=== PATIENT | female | born 1965 | race Caucasian/White ===

== ENCOUNTER → 2017-08-29 | Outpatient (CLI) | payer BC ==
--- NOTE | 2017-08-30 11:54 | MM ---
Reason for exam: screening (asymptomatic). Last mammogram was performed 1 year and 8 months ago. History: Patient is postmenopausal. Family history of breast cancer in mother at age 50 and breast cancer in maternal aunt. Took hormonal contraceptives for 5 years. Physical Findings: A clinical breast exam by your physician is recommended on an annual basis and results should be correlated with mammographic findings. MG Screening Mammo w CAD Bilateral CC and MLO view(s) were taken. Prior study comparison: January 06, 2016, bilateral MG screening mammo w CAD. December 27, 2014, bilateral MG screening mammo w CAD. There are scattered fibroglandular densities. There is no discrete abnormality. No significant changes when compared with prior studies. ASSESSMENT: Negative, BI-RAD 1 RECOMMENDATION: Routine screening mammogram of both breasts in 1 year.
== END | disposition home or self-care (01) ==
LOC: RADMAMWWP 07:18
PROVIDERS: ATTEND Family Medicine
DX: Z12.31 Encounter for screening mammogram for malignant neoplasm of breast (principal)
CPT/HCPCS: 77067

== ENCOUNTER → 2018-10-30 | Outpatient (CLI) | payer BC ==
--- NOTE | 2018-10-31 10:57 | MM ---
Reason for exam: screening (asymptomatic). Last mammogram was performed 1 year and 2 months ago. History: Patient is postmenopausal. Family history of breast cancer in mother at age 50 and breast cancer in maternal aunt. Took hormonal contraceptives for 5 years. Physical Findings: A clinical breast exam by your physician is recommended on an annual basis and results should be correlated with mammographic findings. MG Screening Mammo w CAD Bilateral CC and MLO view(s) were taken. Prior study comparison: August 29, 2017, bilateral MG screening mammo w CAD. January 06, 2016, bilateral MG screening mammo w CAD. The breast tissue is heterogeneously dense. This may lower the sensitivity of mammography. There is no discrete abnormality. No significant changes when compared with prior studies. ASSESSMENT: Negative, BI-RAD 1 RECOMMENDATION: Routine screening mammogram of both breasts in 1 year.
== END ==
LOC: RADMAMWWP 10:18
PROVIDERS: ATTEND Family Medicine
DX: Z12.31 Encounter for screening mammogram for malignant neoplasm of breast (principal)
CPT/HCPCS: 77067

== ENCOUNTER → 2018-11-27 | Outpatient (CLI) | payer OTHER ==
--- NOTE | 2018-11-27 14:40 | XR ---
EXAMINATION TYPE: XR Hip Complete 2 views RT, XR knee complete 3 views RT DATE OF EXAM: 11/27/2018 COMPARISON: NONE HISTORY: 53-year-old female right hip and knee pain FINDINGS: Right hip: Mild degenerative spurring at the right hip. Overall hip joint space appears maintained. No acute fra cture, subluxation, or dislocation seen. Phlebolith in the right side of pelvis. Right knee: Meniscal chondrocalcinosis. Moderate degenerative spurring patellofemoral compartment and mild to mod erate in the medial compartment. Trace knee joint effusion. Extensor mechanism intact. No acute fract ure, subluxation, or dislocation. MPRESSION: 1. Right hip: Mild degenerative spurring. No acute osseous abnormality seen. 2. Right knee: Mild to moderate medial and patellofemoral compartmental osteoarthrosis. No acute osse ous abnormality seen. Meniscal chondrocalcinosis may be idiopathic or could reflect underlying CPPD.
== END | disposition home or self-care (01) ==
LOC: RADXRMAIN 09:48
PROVIDERS: ATTEND Emergency Medicine
DX: M25.551 Pain in right hip (principal); M76.891 Other specified enthesopathies of right lower limb, excluding foot; M17.11 Unilateral primary osteoarthritis, right knee; M11.261 Other chondrocalcinosis, right knee
CPT/HCPCS: 73502

== ENCOUNTER → 2018-12-28 | Outpatient (CLI) | payer BC ==
[2018-12-28 10:25] LABS: Basophils % (A) 1 %; Eosinophils # (A) 0.1 k/uL (0-0.7); Eosinophils % (A) 2 %; HCT 42.2 % (34.0-46.0); HGB 13.7 gm/dL (11.4-16.0); Lymphocytes # (A) 1.3 k/uL (1.0-4.8); Lymphocytes % (A) 22 %; MCH 28.5 pg (25.0-35.0); MCHC 32.4 g/dL (31.0-37.0); MCV 87.7 fL (80.0-100.0); Mean Platelet Volume 6.9; Monocytes # (A) 0.3 k/uL (0-1.0); Monocytes % (A) 6 %; Neutrophils # (A) 4.1 k/uL (1.3-7.7); Neutrophils % (A) 69 %; Platelet Count 195 k/uL (150-450); RBC 4.81 m/uL (3.80-5.40); RDW 14.3 % (11.5-15.5)
[2018-12-28 10:31] LABS: Potassium 4.4 mmol/L (3.5-5.1)
== END | disposition home or self-care (01) ==
LOC: LABPAT 09:22
PROVIDERS: ATTEND Orthopaedic Surgery
DX: Z01.818 Encounter for other preprocedural examination (principal); Z01.812 Encounter for preprocedural laboratory examination; M17.11 Unilateral primary osteoarthritis, right knee
CPT/HCPCS: 80051; 85025; 87070; 93005

== ENCOUNTER 2019-01-16 08:34 | Day surgery (SDC) | payer BC, OTHER ==
[2019-01-03 09:02] VITALS: BMI 40.3
--- NOTE | 2019-01-15 13:07 | HP ---
HISTORY AND PHYSICAL CHIEF COMPLAINT: Right knee pain. 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 She has tried medications and injections with only partial temporary relief. Currently, she is off work because of the pain. She notes soreness and stiffness along with night symptoms. PAST MEDICAL HISTORY: Significant for arthritis and depression along with hypercholesterolemia. PAST SURGICAL HISTORY: Significant for left knee arthroscopy. CURRENT MEDICATIONS: 1. Atorvastatin. 2. Celexa. She denies cancer. ALLERGIES: SULFA. FAMILY HISTORY: Significant for heart disease and cancer. SOCIAL HISTORY: Significant for social alcohol use. REVIEW OF SYSTEMS: A 16-point review of systems otherwise reviewed and is noncontributory. PHYSICAL EXAMINATION: On examination, the patient is approximately 5 foot 4, 236 pounds of endomorphic habitus. HEENT: Exam is nonfocal. NECK: Supple. She has painless passive motion of the right hip. Straight leg raise is negative. Active motion right knee -6 to 120 degrees of flexion. She has genu varum alignment. She is tender about the medial joint line. She has a trace effusion. Collaterals are stable, Yoel is negative, Nicol's is equivocal. Her distal neurovascular exam appears intact in the right lower extremity. Previous x-rays obtained of the right knee in the office show severe medial compartment narrowing. IMPRESSION: 1. Right knee severe medial compartment osteoarthrosis. 2. Increased body mass index. RECOMMENDATIONS: I talked to the patient at length regarding her condition along with treatment options. At this point, she is quite symptomatic and limited because of pain related to her osteoarthrosis despite conservative measures. After thorough discussion, she opts to proceed with surgery. We will plan to proceed with right total knee arthroplasty. Risks and benefits were discussed at length in layman's terms. We will institute DVT prophylaxis, postoperatively. MMODL / IJN: [id number] /
[~2019-01-16 08:34] MED LIST: ACETAMINOPHEN TAB 500 MG TAB PO ONE; HYDROmorphone 0.5 MG/0.5 ML SYRINGE IVP PRN; LIDOCAINE 1% 20 ML VIAL (10MG/ML) FOR IV START INTRADERMA PRN; MELOXICAM 7.5 MG TAB PO ONE; ONDANSETRON 4 MG/2 ML VIAL IVP ONE; TRANEXAMIC ACID 1,000 MG in SODIUM CHLORIDE 0.9% 100 ML IVPB ONE
[2019-01-16] MEDS ORDERED: DEXAMETHASONE SOD PHOSPHATE 10 MG/ML 1 ML VIAL IV ONE (09:00)
[2019-01-16] MEDS: LACTATED RINGERS 1,000 ML IV SCH (09:00)
[2019-01-16] MEDS: VANCOMYCIN 1,500 MG in SODIUM CHLORIDE 0.9% 250 ML IVPB ONE ×2 (09:20→09:25)
[2019-01-16] MEDS ORDERED: fentaNYL (PF) 50 MCG/ML 2 ML AMP IV ONE (09:31)
[2019-01-16] MEDS ORDERED: MIDAZOLAM PF (FBP) 2 MG/2 ML VIAL IV ONE (09:31)
[2019-01-16] MEDS ORDERED: ROPIVACAINE 0.2%-NS ON-Q PUMP 1,090 MG, EMPTY PAIN BALL 1 EACH MISCELLANE PRN (10:09)
--- NOTE | 2019-01-16 10:10 | P.ANPRN ---
Procedure Note - Anesthesia - Nerve Block Performed Right Adductor Canal Infusion Time Out Performed: Yes Date of Procedure: 01/16/19 Location of Patient Procedure: PreOp Indication: Acute Post-Operative Pain, Requested by Surgeon Specifically requested for management of pain by DrWily: Panda Carvalho Sedation Type: Sedate with meaningful contact maintained Preparation: Sterile Prep Position: Supine Catheter Depth at Skin (cm): 10 Needle Gauge: 18 Ultrasound used to visualize needle placement: Yes Injectate: 0.5% Ropivacaine (see comment for volume) (20 cc) Blood Aspirated: No Pain Paresthesia on Injection Noted: No Resistance on Injection: Normal Image Stored and Saved: Yes Events: Uneventful and Well Tolerated
[2019-01-16] MEDS ORDERED: ROPIVACAINE 246.25 MG, EPINEPHrine 0.5 MG, KETOROLAC 30 MG, cloNIDine HCL/PF 80 MCG, WA... MISCELLANE ONE ×5 (10:38)
[2019-01-16] MEDS ORDERED: TRANEXAMIC ACID 1,000 MG/10 ML VIAL ONE (10:58)
[2019-01-16] MEDS ORDERED: PHENYLEPHRINE-0.9% NACL SYG 1 MG/10 ML SYRINGE ONE (10:58)
[2019-01-16] MEDS ORDERED: fentaNYL (PF) 50 MCG/ML 2 ML AMP ONE (10:58)
[2019-01-16] MEDS ORDERED: PROPOFOL 10 MG/ML 20 ML VIAL IV ONE (10:58)
[2019-01-16] MEDS ORDERED: MIDAZOLAM 2 MG/2 ML VIAL ONE (10:58)
[2019-01-16] MEDS ORDERED: SODIUM CHLORIDE 0.9% 100 ML BAG ONE (10:58)
[2019-01-16] MEDS ORDERED: ceFAZolin 1,000 MG in SODIUM CHLORIDE 0.9% 1,000 ML IRRIGATION ONE (11:36)
[2019-01-16] MEDS ORDERED: LACTATED RINGERS 1,000 ML IV ONE (12:30)
[2019-01-16] MEDS ORDERED: ONDANSETRON 4 MG/2 ML VIAL IVP PRN (13:15)
[2019-01-16] MEDS ORDERED: NALOXONE 0.4 MG/ML 1 ML VIAL IV PRN (13:15)
[2019-01-16] MEDS ORDERED: HYDROmorphone 0.5 MG/0.5 ML SYRINGE IVP PRN (13:15)
--- NOTE | 2019-01-16 13:23 | P.OP ---
Date of Procedure: 01/16/19 Preoperative Diagnosis: Right knee severe tricompartmental osteoarthrosis Postoperative Diagnosis: Same Procedure(s) Performed: Right total knee arthroplastycementedcruciate retaining Implants: [employer] journey 2 size 5 cemented femoral component, size 4 cemented tibial component, 9 mm articular surface, 32 mm cemented patellar component. Anesthesia: regional, local, spinal Surgeon: Panda Carvalho Estimated Blood Loss (ml): 50 Pathology: other (Bone fragments) Condition: stable Disposition: PACU Indications for Procedure: The patient's a 53-year-old female who presents with progressive right knee pain secondary to osteoarthrosis despite conservative measures. A discussion of the risks and benefits of operative intervention versus continued conservative measures was made with patient. She opted to proceed with surgery. Operative risks to include infection, neurovascular injury, development of blood clots, possible component loosening, possible component failure need for subsequent procedures was discussed. Informed consent was obtained. Operative Findings: As below Description of Procedure: The patient was brought to the operating room, and after induction of spinal a nesthesia the right lower extremity was prepped and draped in a normal fashion. The tourniquet was inflated to 270 mmHg. A longitudinal incision extending 3 finger breaths above the superior pole of the patella extending to the medial aspect the tibial tubercle was then made. The skin and subcutaneous tissues were divided sharply. Electrocautery was used for hemostasis. A medial parapatellar arthrotomy was then performed. The medial soft tissues to include the superficial and deep portions of the medial collateral ligament as well as the medial hamstring tendons were elevated subperiosteally. The proximal medial tibia osteophytes were carefully removed. The patella was everted. The knee was flexed. A portion of the retropatellar fat pad was excised sharply. The anterior cruciate ligament was sacrificed. A starting hole was made in the distal femur 1 cm anterior to the posterior cruciate origin. An intramedullary femoral guide was gently inserted planning on 5 valgus distal cut with 9 mm distal resection. The cutting block was pinned in place. The distal cut was then made. The posterior referencing sizing guide was utilized. 3 of external rotation was built into the system and verified off the trans- epicondylar axis and the posterior condyles. I felt size 5 was most appropriate. The cutting block was pinned in place. The anterior, posterior, and chamfer cuts were then made. The bone fragments were removed. A notch cut was then made with the appropriate guide. The trial size 5 femoral component was then placed and was fully seated. There was good anterior to posterior and medial to lateral fit. The distal peg holes were then drilled. The trial component was then removed. Attention was then paid towards preparing the proximal tibia. An extra medullary guide was utilized in line with the tibial shaft and second metatarsal distally. A 3 posterior slope was planned. I planned on 2 mm resection from the medial compartment. The cutting block was pinned in place. The proximal tibial cut was then made. The bone was removed in one fragment. The remnants of the medial and lateral menisci were excised the capsule junction with electrocautery. The tibia sized most appropriately at size 4. The posterior osteophytes off the distal femur were carefully removed with a curved osteotome. The trial tibial and femoral components were placed along with a 9 millimeters articular surface. I was able to obtain full flexion and extension with good stability with varus and valgus stress. After several flexion and extension cycles, the tibial rotation was marked with electrocautery in line with the medial one third of the tibial tubercle. Attention was then paid towards preparing the patella. A patella reamer was utilized taking this down to 14 mm of bone stock. A good flush cut was made. The patella sized most appropriately at 32 millimeters. The peg holes were then drilled. The trial component was placed. The knee was taken through a range of motion. I had good patellofemoral tracking with no hands technique. The trial components were then removed. The tibia was prepared in the appropriate rotation with appropriate drill and keel punch. The flexion and extension gaps were checked and felt to be symmetric. The posterior soft tissues were injected with ropivacaine. The bony surfaces were prepared with pulsatile lavage and dried. The deep tibial component was then cemented in place and was fully seated. Excess cement was removed. The femoral component was cemented in place and was fully seated. Again excess cement was removed. The trial 9 millimeters surface was then inserted in the knee was put in full extension. The patella component was cemented in place. After the cement had sufficiently hardened, the knee was again taken through a range of motion. Again there was good stability in flexion and extension with varus and valgus stress. The trial articular surface was then removed. The final articular surface was placed and was impacted. Care was taken to avoid any soft tissue interposition. Pulsatile lavage was again utilized. The tourniquet was deflated with approximately 65 minutes total tourniquet time. There was minimal drainage therefore a deep drain was not placed. The medial parapatellar arthrotomy was then closed with #2 Ethibond suture. The subcutaneous tissues were reapproximated interrupted 2-0 Vicryl sutures. The skin was reapproximated with 3-0 subarticular strata fix suture. Skin tape and adhesive was applied. A sterile dressing was applied. The patie nt was then awoken from sedation and transferred to recovery room in good condition. Blood loss was estimated at 50 milliliters. No complications were incurred. Sponge and needle counts were correct at the end the case.
--- NOTE | 2019-01-16 14:13 | XR ---
EXAMINATION TYPE: XR knee limited RT DATE OF EXAM: 01/16/2019 CLINICAL HISTORY: Right knee pain and arthritis status post total knee replacement. TECHNIQUE: Portable AP and crosstable lateral views of the right knee are obtained immediately posto peratively. COMPARISON: Right knee x-ray November 27, 2018 FINDINGS: Metallic hardware from total right knee arthroplasty is seen and appears satisfactory in a lignment and position. There is evidence of recent surgery with diffuse subcutaneous gas and soft ti ssue swelling noted. IMPRESSION: METALLIC HARDWARE FROM TOTAL RIGHT KNEE ARTHROPLASTY IS SATISFACTORY IN ALIGNMENT.
[2019-01-16] MEDS: HYDROcodone/APAP 7.5-325MG 1 EACH TAB PO PRN (17:34)
[2019-01-16] MEDS ORDERED: VANCOMYCIN 1,500 MG in SODIUM CHLORIDE 0.9% 250 ML IVPB ONE (21:00)
[2019-01-16] MEDS ORDERED: CITALOPRAM HYDROBROMIDE 20 MG TAB PO SCH (21:00)
[2019-01-16] MEDS ORDERED: ATORVASTATIN 20 MG TAB PO SCH (21:00)
--- NOTE | 2019-01-16 22:39 | P.CONS ---
History of Present Illness - Reason for Consult Consult date: 01/16/19 Medical management Requesting physician: Michael Marks - Chief Complaint Right knee surgery - History of Present Illness Consultation: This is a very pleasant [address] abad. Has undergone right total knee arthroplasty by Dr. Marks. Pain is controlled. No nausea vomiting. No dizziness. No chest pain or short of breath. Chronic stable medical conditions include GERD, hyperlipidemia, Rose arthritis including the knee and hip, varicose veins anxiety depression. Sitting up comfortable. Review of systems: GEN.: None EYES: None HEENT: None NECK: None RESPIRATORY: None CARDIOVASCULAR: None GASTROINTESTINAL: None GENITOURINARY: None MUSCULOSKELETAL: Pain in the knees and hips LYMPHATICS: None HEMATOLOGICAL: None PSYCHIATRY: None NEUROLOGICAL: Some anxiety Past medical history: GERD, hyperlipidemia, osteoarthritis, varicose veins, anxiety, depression Social history: Doesn't smoke. Alcohol rarely. 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 EYES: Pupils equal. Conjunctiva normal. HEENT: External appearance of nose and ears normal, oral cavity grossly normal. NECK: JVD not raised; masses not palpable. HEART: First and second heart sounds are normal; no edema. LUNGS: Respiratory rate normal; clear to auscultation. ABDOMEN: Soft, nontender, liver spleen not palpable, no masses palpable. PSYCH: Alert and oriented x3; mood and affect normal. NEUROLOGICAL: Cranial nerves grossly intact; no facial asymmetry, power and sensation grossly intact. LYMPHATICS: No lymph nodes palpable in the axilla and neck MUSCULOSKELETAL: Dressing over the right knee INVESTIGATIONS, reviewed in the clinical context: Labs from December 28 White count 6 hemoglobin 13.7 potassium 4.4 Assessment: -Right total knee arthroplasty -GERD -Hyperlipidemia -Primary osteoarthritis -Varicose veins -Anxiety depression otherwise specified -Morbid obesity BMI 40.9 Plan: Home medications resumed. Pain is controlled. On Xarelto DVT prophylaxis. Care was discussed with the patient Thank you Dr. Marks Past Medical History Past Medical History: GERD/Reflux, Hyperlipidemia, Osteoarthritis (OA) Additional Past Medical History / Comment(s): VARICOSE VEINS. History of Any Multi-Drug Resistant Organisms: None Reported Past Surgical History: Orthopedic Surgery, Tubal Ligation Additional Past Surgical History / Comment(s): LEFT KNEE ARTHROSCOPY Past Anesthesia/Blood Transfusion Reactions: No Reported Reaction Past Psychological History: Anxiety, Depression Smoking Status: Never smoker Past Alcohol Use History: Rare Past Drug Use History: None Reported - Past Family History Mother Family Medical History: Cancer Additional Family Medical History / Comment(s): BREAST CANCER Medications and Allergies Home Medications Medication Instructions Recorded Confirmed Type Atorvastatin Calcium [Lipitor] 20 mg PO HS 11/06/15 01/16/19 History Citalopram Hydrobromide [CeleXA] 20 mg PO HS 11/06/15 01/16/19 History Multivitamins, Thera [Multivitamin 1 tab PO DAILY 11/06/15 01/16/19 History (formulary)] Cholecalciferol [Vitamin D3 (25 1,000 unit PO DAILY 01/03/19 01/16/19 History Mcg = 1000 Iu)] Naproxen Sodium [Aleve] 440 mg PO BID PRN 01/03/19 01/16/19 History Allergies Allergy/AdvReac Type Severity Reaction Status Date / Time Sulfa (Sulfonamide Allergy Anaphylaxis Verified 01/16/19 08:53 Antibiotics) Physical Exam Vitals: Vital Signs Temp Pulse Pulse Resp BP BP BP 01/16/19 15:13 97.7 F 86 15 119/67 01/16/19 14:45 76 16 111/61 01/16/19 14:30 80 16 117/59 01/16/19 14:15 71 16 116/58 01/16/19 14:00 69 16 121/62 01/16/19 13:45 72 16 99/58 01/16/19 13:30 73 16 101/56 01/16/19 13:17 96.9 F L 79 16 103/54 01/16/19 09:50 71 16 120/66 01/16/19 08:55 98.6 F 70 16 137/72 Pulse Ox 01/16/19 15:13 92 L 01/16/19 14:45 97 01/16/19 14:30 97 01/16/19 14:15 98 01/16/19 14:00 100 01/16/19 13:45 100 01/16/19 13:30 100 01/16/19 13:17 97 01/16/19 09:50 98 01/16/19 08:55 97 Intake and Output 01/16/19 01/16/19 01/16/19 06:59 14:59 22:59 Intake Total 1651 240 Output Total 700 Balance 951 240 Intake: IV 1651 Oral 240 Output: Urine 650 Estimated Blood Loss 50 Other: # Voids 1 Weight 108 kg
[2019-01-17] MEDS: HYDROcodone/APAP 7.5-325MG 1 EACH TAB PO PRN ×2 (00:45→08:30)
[2019-01-17] MEDS: LACTATED RINGERS 1,000 ML IV SCH (01:57)
--- NOTE | 2019-01-17 06:48 | P.PN ---
Progress Note - Text Anesthesia POD 629. Patient is status post right TKR under spinal anesthesia with a right adductor canal catheter placed for postoperative pain relief. With ropivacaine 0.2% running at 8 cc's per hour, the patient's VAS is (4, 6). Catheter site is clean dry and intact. The patient has required by mouth Vincent to supplement the adductor canal catheter and long-acting local placed during the surgical procedure. The patient's adductor canal was quite deep resulting in rather poor visualization of the needle tip and requiring all 10 cm of the catheter to reach the vicinity of the adductor canal. It wouldn't be surprising if the catheter isn't functioning optimally at this point.
[2019-01-17 07:28] LABS: Basophils # (A) 0.1 k/uL (0-0.2); Basophils % (A) 1 %; Eosinophils % (A) 0 %; HCT 36.7 % (34.0-46.0); HGB 11.7 gm/dL (11.4-16.0); Lymphocytes # (A) 0.8 k/uL (1.0-4.8); Lymphocytes % (A) 8 %; MCH 28.1 pg (25.0-35.0); MCV 87.7 fL (80.0-100.0); Mean Platelet Volume 7.2; Monocytes # (A) 0.5 k/uL (0-1.0); Monocytes % (A) 5 %; Neutrophils # (A) 8.2 k/uL (1.3-7.7); Neutrophils % (A) 85 %; Platelet Count 188 k/uL (150-450); RBC 4.18 m/uL (3.80-5.40); RDW 13.7 % (11.5-15.5); WBC 9.6 k/uL (3.8-10.6)
[2019-01-17 07:50] VITALS: BP 120/79; PULSE 63; RESP 15; TEMP 98.4
[2019-01-17] MEDS ORDERED: MULTIVITAMINS, THERA 1 EACH TAB PO SCH (09:00)
[2019-01-17] MEDS ORDERED: RIVAROXABAN 10 MG TAB PO SCH (09:00)
--- NOTE | 2019-01-17 13:02 | P.PN ---
Subjective Progress Note Date: 01/17/19 Principal diagnosis: Status post right total knee arthroplasty The patient notes mild soreness in the right knee, however improvement. She denies fevers or chills, or shortness of breath. Objective - Vital Signs Vital signs: Vital Signs Temp 98.4 F 01/17/19 07:00 Pulse 63 01/17/19 07:00 Resp 15 01/17/19 07:00 BP 120/79 01/17/19 07:00 Pulse Ox 98 01/17/19 07:00 Intake & Output 01/16/19 01/17/19 01/17/19 18:59 06:59 18:59 Intake Total 1891 240 Output Total 700 Balance 1191 240 Weight 108 kg Intake: IV 1651 Oral 240 240 Output: Urine 650 Estimated Blood Loss 50 Other: # Voids 2 - Exam Right knee incision clean, dry, intact. Negative Homans right lower extremity. Neurovascular exam intact right lower extremity. - Labs CBC & Chem 7: 01/17/19 05:59 Labs: Abnormal Lab Results - Last 24 Hours (Table) 01/17/19 Range/Units 05:59 Neutrophils # 8.2 H (1.3-7.7) k/uL Lymphocytes # 0.8 L (1.0-4.8) k/uL Assessment and Plan Assessment: Status post right total knee arthroplasty Plan: Discharge home today. Follow-up instructions as written. Continue DVT prophylaxis. Time with Patient: Less than 30
--- NOTE | 2019-01-17 13:04 | P.DS ---
Providers Date of admission: 01/16/2019 Expected date of discharge: 01/17/19 Attending physician: Panda Carvalho Consults: 01/16/19 13:15 Consult Physician Routine Consulting Provider: Walt Talley Consult Reason/Comments: Medical management Do you want consulting provider notified?: Yes Primary care physician: Colten Reeseqvi Hospital Course: The patient underwent right total knee arthroplasty without complication. Postoperatively she had good return of bowel and bladder function. She was seen by physical therapy and completed stairs. Upon discharge she was afebrile st able vital signs. Her incision was healing well. Assessment: Doing well status post right total knee arthroplasty Procedures: Right total knee arthroplasty Patient Condition at Discharge: Good Plan - Discharge Summary Discharge Rx Participant: Yes New Discharge Prescriptions: New Rivaroxaban [Xarelto] 10 mg PO DAILY 14 Days #14 tab HYDROcodone/APAP 7.5-325MG [Deposit 7.5-325] 1 tab PO Q4H PRN 7 Days #28 tab PRN Reason: Pain No Action Citalopram Hydrobromide [CeleXA] 20 mg PO HS Atorvastatin Calcium [Lipitor] 20 mg PO HS Multivitamins, Thera [Multivitamin (formulary)] 1 tab PO DAILY Cholecalciferol [Vitamin D3 (25 Mcg = 1000 Iu)] 1,000 unit PO DAILY Naproxen Sodium [Aleve] 440 mg PO BID PRN PRN Reason: Pain Discharge Medication List Atorvastatin Calcium [Lipitor] 20 mg PO HS 11/06/15 [History] Citalopram Hydrobromide [CeleXA] 20 mg PO HS 11/06/15 [History] Multivitamins, Thera [Multivitamin (formulary)] 1 tab PO DAILY 11/06/15 [History] Cholecalciferol [Vitamin D3 (25 Mcg = 1000 Iu)] 1,000 unit PO DAILY 01/03/19 [History] Naproxen Sodium [Aleve] 440 mg PO BID PRN 01/03/19 [History] HYDROcodone/APAP 7.5-325MG [Deposit 7.5-325] 1 tab PO Q4H PRN 7 Days #28 tab 0 01/17/19 [Rx] Rivaroxaban [Xarelto] 10 mg PO DAILY 14 Days #14 tab 01/17/19 [Rx] Follow up Appointment(s)/Referral(s): Colten Kiser MD [Primary Care Provider] - 01/25/19 1:40 pm [facility],Equipment [NON-STAFF] - As Needed (Continuous Passive Motion knee machine ) [facility], [NON-STAFF] - As Needed Armando Eaton PAC [PHYSICIAN LEATHER [employer]CE INSPECTOR] - 01/31/19 3:30 pm Patient Instructions/Handouts: Joint Replacement Surgery (DC) Activity/Diet/Wound Care/Special Instructions: Keep incision clean and dry. Weightbearing as tolerated right leg with walker. Xarelto as prescribed. Follow-up 2 weeks. Call the office at [phone] with any concerns or questions. Discharge Disposition: HOME WITH HOME HEALTH SERVICES
--- NOTE | 2019-01-17 22:50 | P.PN ---
Progress Note - Text Progress Note Date: 01/17/19 Interval history: This is a very pleasant [address] abad. Has undergone right total knee arthroplasty by Dr. Marks. Pain is controlled. No nausea vomiting. No dizziness. No chest pain or short of breath. Chronic stable medical conditions include GERD, hyperlipidemia, Rose arthritis including the knee and hip, varicose veins anxiety depression. Today-sitting up. Feeling better. Some pain is present. No nausea vomiting. Did work with therapy. Review of systems: Was done for constitutional, cardiovascular, GI, pulmonary. Musculoskeletal, relevant finding as above Current medications reviewed from today's electronic records Physical examination: VITAL SIGNS: 98.4, 63, 15, 120/79, 98% room air GENERAL: BMI 40.9, sitting upon a distress. EYES: Pupils equal. Conjunctiva normal. HEENT: External appearance of nose and ears normal, oral cavity grossly normal. NECK: JVD not raised; masses not palpable. HEART: First and second heart sounds are normal; no edema. LUNGS: Respiratory rate normal; clear to auscultation. ABDOMEN: Soft, nontender, liver spleen not palpable, no masses palpable. PSYCH: Alert and oriented x3; mood and affect normal. MUSCULOSKELETAL: Dressing over the right knee INVESTIGATIONS, reviewed in the clinical context: White count 9.6 hemoglobin 11.7 Labs from December 28 White count 6 hemoglobin 13.7 potassium 4.4 Assessment: -Right total knee arthroplasty -GERD -Hyperlipidemia -Primary osteoarthritis -Varicose veins -Anxiety depression otherwise specified -Morbid obesity BMI 40.9 Plan: Stable. Continue current medication treatment plan. Thank you Dr. Marks
== END 2019-01-17 15:50 | disposition home health service (06) ==
LOC: OR 08:34 → 4SSUR 13:18 → OR 01-17 15:50
PROVIDERS: ATTEND Orthopaedic Surgery
DX: M17.11 Unilateral primary osteoarthritis, right knee (principal); E78.00 Pure hypercholesterolemia, unspecified; K21.9 Gastro-esophageal reflux disease without esophagitis; E78.5 Hyperlipidemia, unspecified; F41.9 Anxiety disorder, unspecified; F39 Unspecified mood [affective] disorder; F32.9 Major depressive disorder, single episode, unspecified; M16.9 Osteoarthritis of hip, unspecified; I83.90 Asymptomatic varicose veins of unspecified lower extremity; E66.01 Morbid (severe) obesity due to excess calories; Z98.51 Tubal ligation status; Z79.899 Other long term (current) drug therapy; Z88.2 Allergy status to sulfonamides; Z98.890 Other specified postprocedural states; Z68.41 Body mass index [BMI] 40.0-44.9, adult; Z82.49 Family history of ischemic heart disease and other diseases of the circulatory system; Z80.3 Family history of malignant neoplasm of breast
CPT/HCPCS: 97161; 85025; 88300; 73560; 27447; 64448; C1713; C1776; C1772; J2250 ×2; J0171; J3370; J1100; J2405; J0690; J3010; J1885; J2795; J2370; J2704; J0735; J1170

== ENCOUNTER 2019-03-06 09:22 | Day surgery (SDC) | payer BC ==
[2019-03-01 13:53] VITALS: BMI 40.3
--- NOTE | 2019-03-05 09:07 | HP ---
HISTORY AND PHYSICAL CHIEF COMPLAINT: Right knee stiffness. 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 She had adequate rehabilitation; however, persistent stiffness. She otherwise had an uncomplicated postoperative course. She denies fevers or chills. PAST MEDICAL HISTORY: Significant for depression and arthritis. PAST SURGICAL HISTORY: Significant for right total knee arthroplasty and left knee arthroscopy. CURRENT MEDICATIONS: 1. Atorvastatin. 2. Celexa. .. ALLERGIES: SULFA. FAMILY HISTORY: Significant for cancer and heart disease. SOCIAL HISTORY: Negative for current tobacco or alcohol use. 16 POINT REVIEW OF SYSTEMS: Otherwise reviewed and is noncontributory. PHYSICAL EXAMINATION: On examination, the patient is approximately 5 foot 4, 238 pounds of endomorphic habitus. HEENT: Exam is nonfocal. NECK: Supple. She has painless passive motion of the right hip. Straight leg raise is negative. Right knee incision is well healed. There is no warmth or erythema. Active motion -6 to 70 degrees of flexion. She is stable to varus, valgus stress. Homans are negative. Her distal neurovascular appears intact in the right lower extremity. IMPRESSION: 1. Status post right total knee arthroplasty. 2. Right knee arthrofibrosis. RECOMMENDATIONS: I talked to the patient at length regarding her condition and treatment options. At this point she is having persistent stiffness despite adequate rehabilitation. After thorough discussion, she opts to proceed with manipulation under anesthesia. We will start a Medrol Dosepak postoperatively as well as continuation of her aggressive therapy. MMODL / IJN: [id number] /
[~2019-03-06 09:22] MED LIST changes: -ACETAMINOPHEN TAB 500 MG TAB PO ONE; +DEXAMETHASONE SOD PHOSPHATE 10 MG/ML 1 ML VIAL IV ONE; -HYDROmorphone 0.5 MG/0.5 ML SYRINGE IVP PRN; -MELOXICAM 7.5 MG TAB PO ONE; +MIDAZOLAM 2 MG/2 ML VIAL IV PRN; -ONDANSETRON 4 MG/2 ML VIAL IVP ONE; +SCOPOLAMINE 1.5MG/72HR PATCH TRANSDERM ONE; -TRANEXAMIC ACID 1,000 MG in SODIUM CHLORIDE 0.9% 100 ML IVPB ONE
[2019-03-06 09:52] VITALS: TEMP 97.9
[2019-03-06] MEDS: LACTATED RINGERS 1,000 ML IV SCH ×2 (10:05→10:27)
[2019-03-06] MEDS: ONDANSETRON 4 MG/2 ML VIAL IVP ONE ×2 (10:07→10:50)
[2019-03-06] MEDS ORDERED: PROPOFOL 10 MG/ML 20 ML VIAL IV ONE (10:30)
[2019-03-06] MEDS ORDERED: KETOROLAC 30 MG/ML 1 ML VIAL IVP ONE (10:40)
[2019-03-06 10:49] VITALS: RESP 16
[2019-03-06] MEDS: HYDROmorphone 0.5 MG/0.5 ML SYRINGE IVP PRN ×2 (10:50→11:00)
--- NOTE | 2019-03-06 10:51 | P.OP ---
Date of Procedure: 03/06/19 Preoperative Diagnosis: Right knee arthrofibrosis status post total knee arthroplasty Postoperative Diagnosis: Same Procedure(s) Performed: Manipulation under anesthesia right knee Anesthesia: MAC Surgeon: Panda Carvalho Estimated Blood Loss (ml): 0 Pathology: none sent Condition: stable Disposition: PACU Indications for Procedure: The patient is a 54-year-old female presents with persistent right knee stiffness after previously undergoing total knee arthroplasty despite adequate rehabilitation. A discussion of the risks and benefits of manipulation was made with the patient. She opted to proceed. Specific risks to include recurrence of stiffness, tendon rupture, fracture, and possible need for subsequent procedures was discussed. Consent was obtained. Operative Findings: As below Description of Procedure: The patient was brought to the recovery room, and after induction of IV sedation I gently manipulated the right knee. She had significant adhesions and block to flexion. I was able to take her from 75 of flexion to 115 of flexion. I was also able to obtain full extension. She was then monitored until fully awake. She tolerated the procedure well. There was no blood loss. There were no complications.
[2019-03-06 11:22] VITALS: BP 138/83; PULSE 71
== END 2019-03-06 12:05 | disposition home or self-care (01) ==
LOC: OR 09:22
PROVIDERS: ATTEND Orthopaedic Surgery
DX: M24.661 Ankylosis, right knee (principal); Z96.651 Presence of right artificial knee joint; F32.9 Major depressive disorder, single episode, unspecified; M19.90 Unspecified osteoarthritis, unspecified site; Z80.9 Family history of malignant neoplasm, unspecified; Z82.49 Family history of ischemic heart disease and other diseases of the circulatory system; Z98.51 Tubal ligation status; E78.5 Hyperlipidemia, unspecified; E66.01 Morbid (severe) obesity due to excess calories; Z68.41 Body mass index [BMI] 40.0-44.9, adult; Z79.899 Other long term (current) drug therapy; Z88.2 Allergy status to sulfonamides
CPT/HCPCS: 27570; J1100; J2405; J1885; J2704; J1170

== ENCOUNTER → 2019-12-24 | Outpatient (CLI) | payer BC ==
--- NOTE | 2019-12-26 08:46 | MM ---
Reason for exam: screening (asymptomatic). Last mammogram was performed 1 year and 2 months ago. History: Patient is postmenopausal. Family history of breast cancer in mother at age 50 and breast cancer in maternal aunt. Took hormonal contraceptives for 5 years. Physical Findings: A clinical breast exam by your physician is recommended on an annual basis and results should be correlated with mammographic findings. MG Screening Mammo w CAD Bilateral CC and MLO view(s) were taken. Prior study comparison: October 30, 2018, bilateral MG screening mammo w CAD. August 29, 2017, bilateral MG screening mammo w CAD. There are scattered fibroglandular densities. No significant changes when compared with prior studies. ASSESSMENT: Negative, BI-RAD 1 RECOMMENDATION: Routine screening mammogram of both breasts in 1 year.
== END | disposition home or self-care (01) ==
LOC: RADMAMWWP 13:26
PROVIDERS: ATTEND Obstetrics & Gynecology
DX: Z12.31 Encounter for screening mammogram for malignant neoplasm of breast (principal)
CPT/HCPCS: 77067

== ENCOUNTER → 2020-02-12 | Outpatient (CLI) | payer BC ==
--- NOTE | 2020-02-12 10:56 | US ---
EXAMINATION TYPE: US abdomen complete DATE OF EXAM: 02/12/2020 COMPARISON: US, CT 2013. CLINICAL HISTORY: R10.11 RUQ pain. intermittent RUQ pain, low back pain especially on left side, diar shona per patient EXAM MEASUREMENTS: Liver Length: 18.0 cm Gallbladder Wall: 0.2m CBD: 0.3m Spleen: 9.0m Right Kidney: 11.1 x 6.2 x 3.8cm Left Kidney: 11.5 x 5.3 x 5.8cm Pancreas: wnl Liver: hyperechoic and attenuated posteriorly suggests fatty liver Gallbladder: wnl Evidence for sonographic Cotto's sign: no CBD: wnl Spleen: wnl Right Kidney: No hydronephrosis or masses seen Left Kidney: upper pole hyperechoic shadowing stone seen = 1.4 x 1.5 x 0.6cm Upper IVC: wnl Abd Aorta: wnl Visualized pancreas appears within normal limits. Visualized abdominal aorta shows no aneurysm. Visua lized liver is heterogeneously hyperechoic. Evaluation for focal masses suboptimal due to the heterog eneity. No ductal dilatation. Finding likely on basis of diffuse fatty infiltration. Gallbladder seen without shadowing mobile gallstones. Kidneys symmetric without hydronephrosis. Left kidney shows lar ge shadowing nonobstructing calculus corresponding to [address] CT. Spleen is normal in size. IMPRESSION: No suspicious new or acute findings identified.
== END | disposition home or self-care (01) ==
LOC: RADUSWWP 08:20
PROVIDERS: ATTEND Family Medicine
DX: R10.11 Right upper quadrant pain (principal)
CPT/HCPCS: 76700

== ENCOUNTER 2020-05-06 06:47 | Day surgery (SDC) | payer BC ==
[2020-04-29 14:50] VITALS: BMI 41.1
[2020-05-06 07:19] VITALS: TEMP 98.2
[2020-05-06] MEDS ORDERED: LACTATED RINGERS 1,000 ML IV ONE (07:23)
[2020-05-06] MEDS ORDERED: LIDOCAINE 1% (10MG/ML) FOR IV START INTRADERMA PRN (07:23)
[2020-05-06] MEDS ORDERED: LACTATED RINGERS 1,000 ML IV SCH (07:23)
[2020-05-06] MEDS ORDERED: LIDOCAINE 1% INJ 10MG/ML (20 ML MDV) ONE (07:44)
[2020-05-06] MEDS ORDERED: PROPOFOL 10 MG/ML 20 ML VIAL IV ONE (07:44)
--- NOTE | 2020-05-06 08:03 | P.PCN ---
Date of Procedure: 05/06/20 Description of Procedure: BRIEF HISTORY: Patient is a 55-year-old female presenting for EGD for evaluation of epigastric pain. Patient reports issues with epigastric abdominal pain, reflux, and altered bowel function with diarrhea. She has been on omeprazole for the past 3 months with some improvement of epigastric pain and reflux. PROCEDURE PERFORMED: Esophagogastroduodenoscopy with biopsy. PREOPERATIVE DIAGNOSIS: Epigastric pain, GERD. ESTIMATED BLOOD LOSS: Minimal. IV sedation per anesthesia. PROCEDURE: After informed consent was obtained, the patient was brought into the endoscopy unit. IV sedation was administered by Anesthesia under continuous monitoring. Initially the Olympus GIF-190 video endoscope was inserted into the mouth. Esophagus intubated without any difficulty. It was gradually advanced into the stomach and duodenum and carefully examined. The bulb and the second part of the duodenum appeared normal, with biopsies taken to rule out celiac sprue. The scope at this time was withdrawn to the stomach, adequately insufflated with air, and upon careful examination, mucosa of the antrum, body, cardia and the fundus appeared normal, except for some mild punctate erythema in the antrum and body suggestive of mild gastritis with biopsies taken. The scope was then withdrawn into the esophagus. The GE junction was located at 38 cm from the incisors and biopsies. The esophagus appeared normal. There were no erosions or ulcerations seen and the patient tolerated the procedure well. IMPRESSION: 1. Mild gastritis. 2. Biopsies of the antrum and body, duodenum and GE junction. RECOMMENDATIONS: The findings of this examination were discussed with the patient . Okay to resume diet. Okay to resume medications. Await pathology from biopsies. Continue current medical management.
[2020-05-06 08:04] VITALS: RESP 18
[2020-05-06 08:26] VITALS: BP 143/88; PULSE 71
== END 2020-05-06 09:01 | disposition home or self-care (01) ==
LOC: ORWHC2ENDO 06:47
PROVIDERS: ATTEND Internal Medicine
DX: K29.50 Unspecified chronic gastritis without bleeding (principal); K21.9 Gastro-esophageal reflux disease without esophagitis; E78.5 Hyperlipidemia, unspecified; Z88.2 Allergy status to sulfonamides; Z87.442 Personal history of urinary calculi; Z79.899 Other long term (current) drug therapy; Z98.51 Tubal ligation status; Z96.651 Presence of right artificial knee joint
CPT/HCPCS: 88305; 43239; J2001; J2704

== ENCOUNTER → 2021-02-03 | Outpatient (CLI) | payer OTHER ==
--- NOTE | 2021-02-04 09:39 | MM ---
Reason for exam: screening (asymptomatic). Last mammogram was performed 1 year and 1 month ago. History: Patient is postmenopausal. Family history of breast cancer in mother at age 50 and breast cancer in maternal aunt. Took hormonal contraceptives for 5 years. Physical Findings: A clinical breast exam by your physician is recommended on an annual basis and results should be correlated with mammographic findings. MG Screening Mammo w CAD Bilateral CC and MLO view(s) were taken. XCCL view(s) were taken of the right breast. Prior study comparison: December 24, 2019, bilateral MG screening mammo w CAD. October 30, 2018, bilateral MG screening mammo w CAD. There are scattered fibroglandular densities. There is no discrete abnormality. No significant changes when compared with prior studies. ASSESSMENT: Negative, BI-RAD 1 RECOMMENDATION: Routine screening mammogram of both breasts in 1 year.
== END | disposition home or self-care (01) ==
LOC: RADMAMWWP 10:02
PROVIDERS: ATTEND Family Medicine
DX: Z12.31 Encounter for screening mammogram for malignant neoplasm of breast (principal)
CPT/HCPCS: 77067

== ENCOUNTER → 2021-09-18 | Outpatient (CLI) | payer OTHER ==
--- NOTE | 2021-09-18 08:46 | CT ---
EXAMINATION TYPE: CT abdomen pelvis wo con DATE OF EXAM: 09/18/2021 COMPARISON: None HISTORY: Gross hematuria, Left renal stone CT DLP: 1121 mGycm Examination of the solid and hollow viscera is limited given the lack of contrast. FINDINGS: LUNG BASES: No evidence for nodule. No evidence for infiltrate. LIVER/GB: Suspect small gallstone. No space-occupying hepatic lesion. PANCREAS: No pancreatic mass identified. No inflammatory process seen. SPLEEN: No evidence for splenomegaly. No intrasplenic lesions seen. ADRENALS: No adrenal nodules identified. No evidence for thickening. KIDNEYS: No evidence for renal mass. 1.9 cm x 1.7 cm calculus upper pole left kidney. No additional c alculi seen. No hydronephrosis. BOWEL: Appendix has a normal appearance. No evidence of bowel obstruction. No inflammatory process. Lymph nodes: No evidence for adenopathy greater than 1 cm. Abdominal aorta: Atheromatous changes seen. No evidence for aneurysm. Genital organs: No significant abnormality. Other: No significant abnormality. IMPRESSION: 1.9 cm x 1.7 cm calculus upper pole left kidney.
== END | disposition home or self-care (01) ==
LOC: RADCTMAIN 08:02
PROVIDERS: ATTEND Urology
DX: N20.0 Calculus of kidney (principal); R31.0 Gross hematuria
CPT/HCPCS: 74176

== ENCOUNTER → 2021-10-14 | Outpatient (CLI) | payer OTHER ==
[2021-10-14 14:27] LABS: Basophils # (A) 0.07 X 10*3/uL (0.00-0.10); Basophils % (A) 1.2 %; Eosinophils # (A) 0.18 X 10*3/uL (0.04-0.35); Eosinophils % (A) 3.1 %; HCT 45.5 % (37.2-46.3); HGB 14.1 g/dL (12.0-15.0); Immature Grans, Automated 0.5 %; Lymphocytes # (A) 1.54 X 10*3/uL (0.90-5.00); Lymphocytes % (A) 26.6 %; MCH 27.8 pg (27.0-32.0); MCV 89.6 fL (80.0-97.0); Mean Platelet Volume 9.7 fL (9.5-12.2); Monocytes # (A) 0.42 X 10*3/uL (0.20-1.00); Monocytes % (A) 7.3 %; NRBC Per 100 WBC 0 /100 WBCS (0.0-0.0); Neutrophils # (A) 3.55 X 10*3/uL (1.80-7.70); Neutrophils % (A) 61.3 %; Platelet Count 227 X 10*3/uL (140-440); RBC 5.08 X 10*6/uL (4.10-5.20); RDW 13.3 % (11.5-14.5); WBC 5.79 X 10*3/uL (4.50-10.00)
[2021-10-14 15:25] LABS: African American GFR (CKD) 100.8 (60.0-200.0); Anion Gap 14.8 mmol/L (10.00-18.00); BUN/Creat Ratio 20.76 Ratio (12.00-20.00); Blood Urea Nitrogen 15.8 mg/dL (9.0-27.0); Carbon Dioxide 26.8 mmol/L (20.0-27.5); Non-African American GFR(CKD) 86.9 (60.0-200.0); Potassium 4.4 mmol/L (3.5-5.5)
== END | disposition home or self-care (01) ==
LOC: LABPAT 10:14
PROVIDERS: ATTEND Urology
DX: Z01.812 Encounter for preprocedural laboratory examination (principal); N20.0 Calculus of kidney
CPT/HCPCS: 80048; 85025

== ENCOUNTER 2021-10-22 06:54 | Day surgery (SDC) | payer OTHER ==
--- NOTE | 2021-10-21 22:22 | P.GSHP ---
History of Present Illness H&P Date: 10/21/21 Chief Complaint: Gross hematuria The patient is a 56-year-old white female with a history of urolithiasis. She presented with gross hematuria. CT scan revealed a 13 mm left upper pole renal calculus, also visible on a plain radiograph. - Constitutional Constitutional: Denies chills, Denies fever - Genitourinary (Female) Genitourinary: Reports hematuria, Reports kidney stones, Denies dysuria Past Medical History Past Medical History: GERD/Reflux, Hyperlipidemia, Osteoarthritis (OA) Additional Past Medical History / Comment(s): VARICOSE VEINS., KIDNEY STONE. History of Any Multi-Drug Resistant Organisms: None Reported Past Surgical History: Joint Replacement, Orthopedic Surgery, Tubal Ligation Additional Past Surgical History / Comment(s): LEFT KNEE ARTHROSCOPY, rt knee replacement Past Anesthesia/Blood Transfusion Reactions: No Reported Reaction, Motion Sickness Additional Past Anesthesia/Blood Transfusion Reaction / Comment(s): CAR SICKNESS Smoking Status: Never smoker - Past Family History Mother Family Medical History: Cancer Additional Family Medical History / Comment(s): BREAST CANCER Medications and Allergies Home Medications Medication Instructions Recorded Confirmed Type Atorvastatin Calcium [Lipitor] 20 mg PO HS 11/06/15 10/21/21 History Citalopram Hydrobromide [CeleXA] 20 mg PO HS 11/06/15 10/21/21 History Cholecalciferol [Vitamin D3 (25 2,000 unit PO DAILY 01/03/19 10/21/21 History Mcg = 1000 Iu)] Immune Booster 1 tab PO DAILY 04/29/20 10/21/21 History Loratadine 10 mg PO DAILY 04/29/20 10/21/21 History Multivit with Calcium,Iron,Min 1 each PO DAILY 04/29/20 10/21/21 History [Women's Multivitamin] Omeprazole Magnesium [PriLOSEC OTC] 20 mg PO DAILY 04/29/20 10/21/21 History lamoTRIgine [LaMICtal Xr] 50 mg PO HS 04/29/20 10/21/21 History Allergies Allergy/AdvReac Type Severity Reaction Status Date / Time Sulfa (Sulfonamide Allergy Anaphylaxis Verified 10/21/21 11:28 Antibiotics) Surgical - Exam - General well developed, well nourished, no distress - Neck no masses, trachea midline - Respiratory normal respiratory effort - Abdomen Abdomen: soft, non tender, no masses, no guarding, no rigid, no rebound - Psychiatric oriented to time, oriented to person, oriented to place, speech is normal, memory intact Results - Imaging Abdominal x-ray: report reviewed, image reviewed CT scan - abdomen: report reviewed, image reviewed Assessment and Plan (1) Calculus of kidney Status: Acute Code(s): N20.0 - CALCULUS OF KIDNEY SNOMED Code(s): 71003486 Plan: Cystoscopy, left ureteroscopy with Holmium laser lithotripsy and possible stone basketing, left ureteral stent insertion. The procedure then reviewed in detail with the patient. She has been made aware of potential risks, which include anesthesia, bleeding, infection, and ureteral injury. Given the stone burden, she is aware of the possible need for secondary procedure.
--- NOTE | 2021-10-22 07:15 | XR ---
EXAMINATION TYPE: XR KUB DATE OF EXAM: 10/22/2021 Comparison: CT 09/18/2021 Clinical History: 56-year-old female preoperative exam, calculus Findings: Known 1.8 cm stone within the left renal collecting system. Nonobstructive bowel gas pattern. Numerou s pelvic phleboliths. Mild stool right-sided the abdomen. Impression: Known 1.8 cm calculus left renal collecting system.
[2021-10-22] MEDS ORDERED: LACTATED RINGERS 1,000 ML IV SCH (07:20)
[2021-10-22] MEDS ORDERED: HYDROmorphone 0.5 MG/0.5 ML SYRINGE IVP PRN (07:20)
[2021-10-22] MEDS ORDERED: DEXAMETHASONE SOD PHOSPHATE 4 MG/ML 1 ML VIAL IV ONE (07:20)
[2021-10-22] MEDS ORDERED: ONDANSETRON 4 MG/2 ML VIAL IVP ONE (07:20)
[2021-10-22] MEDS ORDERED: LACTATED RINGERS 1,000 ML IV ONE ×2 (07:25→09:04)
[2021-10-22] MEDS ORDERED: fentaNYL (PF) 50 MCG/ML 2 ML AMP ONE (07:50)
[2021-10-22] MEDS ORDERED: GLYCOPYRROLATE 0.2 MG/ML 2 ML VIAL ONE (07:50)
[2021-10-22] MEDS ORDERED: SUCCINYLCHOLINE CHLORIDE 100 MG/5 ML SYR IV ONE (07:50)
[2021-10-22] MEDS ORDERED: PROPOFOL 10 MG/ML 20 ML VIAL IV ONE (07:50)
[2021-10-22] MEDS ORDERED: LIDOCAINE 2% INJ 20 MG/ML (2 ML VIAL) ONE (07:50)
[2021-10-22] MEDS ORDERED: ROCURONIUM 10 MG/ML (5 ML VIAL) IV ONE (07:50)
[2021-10-22] MEDS ORDERED: MIDAZOLAM 2 MG/2 ML VIAL ONE (07:50)
[2021-10-22] MEDS ORDERED: NEOSTIGMINE 1 MG/ML 10 ML VIAL ONE (07:50)
[2021-10-22] MEDS ORDERED: IOPAMIDOL-370 50ML BTL MISCELLANE ONE (08:24)
[2021-10-22 09:47] VITALS: TEMP 96.3
[2021-10-22 10:39] VITALS: BP 178/88; PULSE 79; RESP 20
--- NOTE | 2021-10-22 11:24 | FL ---
Fluoroscopy HISTORY: Left renal calculus 65 seconds fluoroscopy time supplied to the referring clinician. 3 intraoperative C-arm images docum ent the procedure. See dictated report from urology.
--- NOTE | 2021-10-22 12:52 | P.OP ---
Date of Procedure: 10/22/21 Preoperative Diagnosis: Left Renal Calculus Postoperative Diagnosis: Left Renal Calculus, Left Ureteral Stricture Procedure(s) Performed: Cystoscopy, balloon dilation of left ureteral stricture, left ureteroscopy with Holmium laser lithotripsy, left ureteral stent insertion Anesthesia: MOEA Surgeon: Dom Dave Estimated Blood Loss (ml): 10 IV fluids (ml): 1,000 Pathology: none sent Condition: stable Disposition: PACU Indications for Procedure: The patient is a 56-year-old white female with a history of urolithiasis. She presented with gross hematuria. CT scan revealed a 13 mm left upper pole renal calculus, also visible on a plain radiograph. Operative Findings: Large upper pole renal calculus, fragmented well. Description of Procedure: The patient was taken to the operating room and placed in the dorsolithotomy position, with legs supported in Delvin stirrups. The external genitalia was prepped and draped sterilely. The 30 lens was used to introduce the 21-Citizen [place] Henson cystoscopic sheath through the urethra and into the bladder under direct vision. The bladder was examined in its entirety. Both ureteral orifices were normal anatomic location and configuration, and clear urine effluxed from both. No tumors or foreign bodies were seen. A 0.038 inch Glidewire was passed through the cystoscope. The ureteral orifice was cannulated, and the Glidewire was advanced up to the renal pelvis. The cystoscope was removed, and an 11/13- Citizen [place] ureteral access catheter was passed over the wire. However, resistance was met within the left distal ureter. It was not possible to pass the 11- [place] obturator over the wire. Therefore, a 15-[place]izen [place], 10 cm balloon dilating catheter was passed over the wire and was used to dilate the ureter. Initially, a short waist was identified consistent with a ureteral stricture. The stricture ultimately dilated, and after several minutes the balloon dilating catheter was deflated and removed. It was then possible to pass the 11/13- [place] ureteral access catheter over the wire, up to the proximal ureter. The flexible ureteroscope was then passed through the ureteral access catheter sheath, up to the kidney. The calculus was readily identified within an upper pole calyx. The 272 micron Holmium laser probe was passed through the ureteroscope, and lithotripsy was performed. The calculus was large and very dense. Initially, a dusting mode was used. Subsequently, fragmenting was performed and ultimately popcorning mode was utilized, resulting in very good fragmentation. The Glidewire was passed through the ureteral access catheter sheath, which was removed. The Glidewire was backloaded into the cystoscope, which was passed into the bladder. A 24 cm, 6-[place]izen [place] double-J ureteral stent was placed over the wire. Proper stent positioning was verified fluoroscopically and endoscopically. The bladder was emptied and the cystoscope removed. The patient tolerated the procedure well and was taken to the recovery room in stable condition. [facility] [place] Procedure Acuity: Elective Stone Size and Location: 13 mm, left upper pole calyx Ureteral Dilation: Balloon Dilation Ureteral Access Sheath Used: Yes Stone Sent for Analysis: No All Stones/Fragments Were Removed with a Basket: No Complications: No Preoperative Antibiotics Given: Yes Stent Placed: Yes If Stent Placed, Was String Left Attached: No If Stent Placed, When is it to be Removed: 1 month Discharge Medications: None
== END 2021-10-22 11:25 | disposition home or self-care (01) ==
LOC: OR 06:54
PROVIDERS: ATTEND Urology
DX: N20.0 Calculus of kidney (principal); E78.5 Hyperlipidemia, unspecified; K21.9 Gastro-esophageal reflux disease without esophagitis; M19.90 Unspecified osteoarthritis, unspecified site; N13.5 Crossing vessel and stricture of ureter without hydronephrosis; R31.0 Gross hematuria; Z87.442 Personal history of urinary calculi; Z80.3 Family history of malignant neoplasm of breast; Z88.2 Allergy status to sulfonamides
CPT/HCPCS: 52356; 74018; C2625; J2250; J1100; J2710; J0690; J2405; J3010; J0330; J2704; Q9967; J2001

== ENCOUNTER → 2021-11-11 | Outpatient (CLI) | payer OTHER ==
[2021-11-11 14:26] LABS: Basophils # (A) 0.04 X 10*3/uL (0.00-0.10); Basophils % (A) 0.7 %; Eosinophils # (A) 0.26 X 10*3/uL (0.04-0.35); Eosinophils % (A) 4.7 %; HCT 41.6 % (37.2-46.3); HGB 12.8 g/dL (12.0-15.0); Immature Grans, Automated 0.4 %; Lymphocytes # (A) 1.32 X 10*3/uL (0.90-5.00); Lymphocytes % (A) 23.7 %; MCH 27.1 pg (27.0-32.0); MCHC 30.8 g/dL (32.0-37.0); MCV 87.9 fL (80.0-97.0); Mean Platelet Volume 9.8 fL (9.5-12.2); Monocytes # (A) 0.45 X 10*3/uL (0.20-1.00); Monocytes % (A) 8.1 %; NRBC Per 100 WBC 0 /100 WBCS (0.0-0.0); Neutrophils # (A) 3.47 X 10*3/uL (1.80-7.70); Neutrophils % (A) 62.4 %; Platelet Count 269 X 10*3/uL (140-440); RBC 4.73 X 10*6/uL (4.10-5.20); RDW 13.1 % (11.5-14.5); WBC 5.56 X 10*3/uL (4.50-10.00)
[2021-11-11 14:41] LABS: African American GFR (CKD) 82.3 (60.0-200.0); Albumin 4.6 g/dL (3.8-4.9); Albumin/Globulin Ratio 1.84 (1.60-3.17); Anion Gap 11.1 mmol/L (10.00-18.00); BUN/Creat Ratio 14.33 Ratio (12.00-20.00); Blood Urea Nitrogen 12.9 mg/dL (9.0-27.0); Calcium 9.5 mg/dL (8.7-10.3); Carbon Dioxide 26.9 mmol/L (20.0-27.5); Globulin 2.5 g/dL (1.6-3.3); Potassium 3.7 mmol/L (3.5-5.5); Total Bilirubin 0.2 mg/dL (0.30-1.20); Total Protein 7.1 g/dL (6.2-8.2)
== END | disposition home or self-care (01) ==
LOC: LABPAT 10:21
PROVIDERS: ATTEND Urology
DX: Z01.812 Encounter for preprocedural laboratory examination (principal); N20.0 Calculus of kidney
CPT/HCPCS: 80053; 85025

== ENCOUNTER 2021-11-19 05:39 | Day surgery (SDC) | payer OTHER ==
--- NOTE | 2021-11-17 05:51 | P.GSHP ---
History of Present Illness H&P Date: 11/17/21 Chief Complaint: Gross hematuria The patient is a 56-year-old white female with a history of urolithiasis. She presented with gross hematuria. CT scan revealed a 13 mm left upper pole renal calculus, also visible on a plain radiograph. On 10/22/2021 she underwent left ureteroscopy with Holmium laser lithotripsy and left ureteral stent insertion. She was found to have a left distal ureteral stricture, which was balloon dilated. She now comes for cystoscopy with left ureteral stent removal. Any residual calculus fragments will be treated with laser lithotripsy and/or stone basketing. - Constitutional Constitutional: Denies chills, Denies fever - Genitourinary (Female) Genitourinary: Reports as per HPI Past Medical History Past Medical History: GERD/Reflux, Hyperlipidemia, Osteoarthritis (OA) Additional Past Medical History / Comment(s): VARICOSE VEINS., ., KIDNEY STONE. History of Any Multi-Drug Resistant Organisms: None Reported Past Surgical History: Joint Replacement, Orthopedic Surgery, Tubal Ligation Additional Past Surgical History / Comment(s): LEFT KNEE ARTHROSCOPY, rt knee replacement, kidney stone procedure Past Anesthesia/Blood Transfusion Reactions: No Reported Reaction, Motion Sickness Additional Past Anesthesia/Blood Transfusion Reaction / Comment(s): CAR SICKNESS Smoking Status: Never smoker - Past Family History Mother Family Medical History: Cancer Additional Family Medical History / Comment(s): BREAST CANCER Father Family Medical History: Coronary Artery Disease (CAD), Diabetes Mellitus Additional Family Medical History / Comment(s): mental illness Medications and Allergies Home Medications Medication Instructions Recorded Confirmed Type Atorvastatin Calcium [Lipitor] 20 mg PO HS 11/06/15 11/16/21 History Citalopram Hydrobromide [CeleXA] 20 mg PO HS 11/06/15 11/16/21 History Cholecalciferol [Vitamin D3 (25 2,000 unit PO DAILY 01/03/19 11/16/21 History Mcg = 1000 Iu)] Immune Booster 1 tab PO DAILY 04/29/20 11/16/21 History Loratadine 10 mg PO DAILY 04/29/20 11/16/21 History Multivit with Calcium,Iron,Min 1 each PO DAILY 04/29/20 11/16/21 History [Women's Multivitamin] Omeprazole Magnesium [PriLOSEC OTC] 20 mg PO DAILY 04/29/20 11/16/21 History lamoTRIgine [LaMICtal Xr] 50 mg PO HS 04/29/20 11/16/21 History Allergies Allergy/AdvReac Type Severity Reaction Status Date / Time Sulfa (Sulfonamide Allergy Anaphylaxis Verified 11/16/21 15:50 Antibiotics) Surgical - Exam - General well developed, well nourished, no distress - Respiratory normal respiratory effort - Abdomen Abdomen: soft, non tender, no guarding, no rigid, no rebound - Genitourinary normal external genitalia - Psychiatric oriented to time, oriented to person, oriented to place, speech is normal, memory intact Results - Imaging Abdominal x-ray: report reviewed, image reviewed CT scan - abdomen: report reviewed, image reviewed Assessment and Plan (1) Calculus of kidney Status: Acute Code(s): N20.0 - CALCULUS OF KIDNEY SNOMED Code(s): 27710885 Plan: Cystoscopy, left ureteral stent removal, left ureteroscopy with possible Holmium laser lithotripsy and/or stone basketing. The procedure then reviewed in detail with the patient. She has been made aware of potential risks, which include anesthesia, bleeding, infection, and ureteral injury.
[2021-11-19] MEDS ORDERED: ONDANSETRON 4 MG/2 ML VIAL IVP ONE (06:13)
[2021-11-19] MEDS ORDERED: LACTATED RINGERS 1,000 ML IV SCH (06:13)
[2021-11-19] MEDS ORDERED: MIDAZOLAM 2 MG/2 ML VIAL IV PRN (06:13)
[2021-11-19] MEDS ORDERED: LIDOCAINE 1% (10MG/ML) FOR IV START INTRADERMA PRN (06:13)
[2021-11-19] MEDS ORDERED: DEXAMETHASONE SOD PHOSPHATE 4 MG/ML 1 ML VIAL IV ONE (06:13)
[2021-11-19 06:28] VITALS: RESP 16
--- NOTE | 2021-11-19 06:49 | XR ---
EXAMINATION TYPE: XR KUB DATE OF EXAM: 11/19/2021 COMPARISON: NONE HISTORY: Left renal calculus TECHNIQUE: Single view FINDINGS: There is left-sided ureteral stent that appears to be in good position. There are numerous phleboliths in the pelvis. Bowel gas pattern is normal. No central intestinal obstruction or pneumope ritoneum. Detail regarding possible ureteral calculus is limited due to gas and fecal material. IMPRESSION: Nonacute abdomen. Left-sided ureteral stent. There is clearing of the large calculus over the upper pole left kidney compared to old exam. No definite ureteral calculus.
[2021-11-19] MEDS ORDERED: LIDOCAINE 2% INJ 20 MG/ML (2 ML VIAL) ONE (07:00)
[2021-11-19] MEDS ORDERED: ePHEDrine 50 MG/ML 1 ML VIAL ONE (07:00)
[2021-11-19] MEDS ORDERED: SUCCINYLCHOLINE CHLORIDE VIAL 200 MG/10 ML VIAL IV ONE (07:00)
[2021-11-19] MEDS ORDERED: MIDAZOLAM 2 MG/2 ML VIAL ONE (07:00)
[2021-11-19] MEDS ORDERED: ROCURONIUM 10 MG/ML (5 ML VIAL) IV ONE (07:00)
[2021-11-19] MEDS ORDERED: PROPOFOL 10 MG/ML 20 ML VIAL IV ONE (07:00)
[2021-11-19] MEDS ORDERED: fentaNYL (PF) 50 MCG/ML 2 ML AMP ONE (07:00)
[2021-11-19] MEDS ORDERED: HYDROmorphone 0.5 MG/0.5 ML SYRINGE IVP PRN (07:00)
[2021-11-19] MEDS ORDERED: NEOSTIGMINE 1 MG/ML 10 ML VIAL ONE (07:00)
[2021-11-19] MEDS ORDERED: GLYCOPYRROLATE 0.2 MG/ML 2 ML VIAL ONE (07:00)
[2021-11-19] MEDS ORDERED: IOPAMIDOL-370 50ML BTL MISCELLANE ONE (08:00)
[2021-11-19] MEDS ORDERED: LACTATED RINGERS 1,000 ML IV ONE (09:03)
[2021-11-19 09:18] VITALS: TEMP 96.8
--- NOTE | 2021-11-19 09:31 | P.OP ---
Date of Procedure: 11/19/21 Preoperative Diagnosis: Left ureteral stricture, left renal calculus Postoperative Diagnosis: Same Procedure(s) Performed: Cystoscopy, left ureteral balloon dilation, left ureteroscopy with Holmium laser lithotripsy and stone basketing, left ureteral stent change Anesthesia: MOEA Surgeon: Dom Dave Estimated Blood Loss (ml): 10 IV fluids (ml): 900 Pathology: other (Calculus fragments, sent for chemical analysis) Condition: stable Disposition: PACU Indications for Procedure: The patient is a 56-year-old white female with a history of urolithiasis. She presented with gross hematuria. CT scan revealed a 13 mm left upper pole renal calculus, also visible on a plain radiograph. On 10/22/2021 she underwent left ureteroscopy with Holmium laser lithotripsy and left ureteral stent insertion. She was found to have a left distal ureteral stricture, which was balloon dilated. She now comes for cystoscopy with left ureteral stent removal. Any residual calculus fragments will be treated with laser lithotripsy and/or stone basketing. Operative Findings: Multiple residual calculus fragments, all removed via stone basketing. Persistent left distal ureteral stricture, successfully balloon dilated. Description of Procedure: The patient was taken to the operating room and placed in the dorsolithotomy position, with legs supported in Delvin stirrups. The external genitalia was prepped and draped sterilely. The 30 lens was used to introduce the 21-Ukrainian Henson cystoscopic sheath through the urethra and into the bladder under direct vision. The bladder was examined in its entirety. No abnormalities were seen. The distal end of the left ureteral stent was grasped with grasping forceps and removed along with the cystoscope. The Henson Boa flexible ureteroscope was advanced into the bladder. The left ureteral orifice was cannulated, and the ureteroscope was slowly advanced under direct vision. Multiple calculus fragments were seen within the left distal ureter. The flexible ureteroscope was removed, and the semirigid ureteroscope was advanced up to the calculus fragments. The 200 holmium laser probe was used to perform lithotripsy, breaking the fragments into smaller pieces. Most passed distally into the bladder, but the remainder were removed using a 1.9- Ukrainian nitinol basket. The semirigid ureteroscope was then advanced up to the left UPJ. No proximal calculus fragments were seen. The semirigid ureteroscope was removed, and the flexible ureteroscope was passed into the ureter. However, it could not be passed beyond the area of narrowing inferior to the level of the iliac vessels. Therefore, a 0.035 inch Glidewire was passed through the ureteroscope, but the ureteroscope could not be advanced over the wire. The ureteroscope was then removed, and an 11/13-Ukrainian ureteral access catheter was passed over the wire. However, it could not be passed beyond the point of narrowing. Therefore, an 18-Ukrainian, 4 cm balloon dilating catheter was passed over the wire and was used to dilate the ureter. Initially, a short waist was identified consistent with a ureteral stricture. The stricture ultimately dilated, and after several minutes the balloon dilating catheter was deflated and removed. It was then possible to pass the 11/13-Ukrainian ureteral access catheter over the wire, up to the proximal ureter. The flexible ureteroscope was then passed through the ureteral access catheter sheath, up to the kidney. Multiple calculus fragments were seen within the kidney, the majority within a lower pole calyx. All calculus fragments were removed using the 1.9-Ukrainian nitinol basket. Final inspection revealed no residual calculus fragments within the kidney. The Glidewire was passed through the ureteroscope, which was then removed along with the ureteral access catheter sheath. The Glidewire was backloaded into the cystoscope, which was passed into the bladder. A 24 cm, 6- Ukrainian double-J ureteral stent was placed over the wire. Proper stent positioning was verified fluoroscopically and endoscopically. The bladder was emptied and the cystoscope removed. The patient tolerated the procedure well and was taken to the recovery room in stable condition. [facility] Report: Procedure Acuity: Elective Stone Size and Location: 13 mm, left upper pole calyx Ureteral Dilation: Balloon Dilation Ureteral Access Sheath Used: Yes Stone Sent for Analysis: Yes All Stones/Fragments Were Removed with a Basket: Yes Complications: No Preoperative Antibiotics Given: Yes Stent Placed: Yes If Stent Placed, Was String Left Attached: No If Stent Placed, When is it to be Removed: 1 month Discharge Medications: None
[2021-11-19 10:07] VITALS: BP 153/82; PULSE 71
--- NOTE | 2021-11-19 10:50 | FL ---
Intraoperative fluoroscopic services were provided. Indication left renal stone with images demonstra ting placement of left ureteral stent. Total fluoroscopy time is 41 seconds with a total of 8 submitt ed images to PACS. Please see the operative note for further details.
== END 2021-11-19 10:39 | disposition home or self-care (01) ==
LOC: OR 05:39
PROVIDERS: ATTEND Urology
DX: N20.0 Calculus of kidney (principal); N13.5 Crossing vessel and stricture of ureter without hydronephrosis; R31.0 Gross hematuria; K21.9 Gastro-esophageal reflux disease without esophagitis; E78.5 Hyperlipidemia, unspecified; M19.90 Unspecified osteoarthritis, unspecified site; Z80.3 Family history of malignant neoplasm of breast; Z98.51 Tubal ligation status; Z82.49 Family history of ischemic heart disease and other diseases of the circulatory system; Z83.3 Family history of diabetes mellitus; Z79.899 Other long term (current) drug therapy; Z88.2 Allergy status to sulfonamides; F31.9 Bipolar disorder, unspecified
CPT/HCPCS: 52356; 52341; 82365; 74018; C2625; C1769; C1758; J2250; J0330; J1100; J2710; J0690; J2405; J3010; J2704; Q9967; J2001

== ENCOUNTER → 2022-01-26 | Outpatient (CLI) | payer OTHER ==
--- NOTE | 2022-01-26 11:32 | XR ---
EXAMINATION TYPE: XR KUB DATE OF EXAM: 01/26/2022 11:24 AM INDICATION: Patient age:Female; 57 years old; Reason for study: N20.0 CALCULUS OF KIDNEY; COMPARISON: 11/19/2021 TECHNIQUE: One radiographic view of the abdomen was obtained. FINDINGS: Left ureteral stent removed. Pelvic phleboliths bilaterally. The bowel gas pattern is nonsp ecific without dilated loops of small or large bowel. There is no evidence for organomegaly or pneumo peritoneum. The osseous structures are intact. Fecal material and gas are demonstrated throughout t he colon and rectum. IMPRESSION: Nonspecific bowel gas pattern without radiographic evidence for acute process. Interval removal of left ureteral stent.
--- NOTE | 2022-01-26 12:45 | US ---
EXAMINATION TYPE: US kidneys/renal and bladder DATE OF EXAM: 01/26/2022 COMPARISON: NONE CLINICAL HISTORY: N20.0 CALCULUS OF KIDNEY. history of left renal stone. Lithotripsy 1 month ago EXAM MEASUREMENTS: Right Kidney: 11.5 x 3.9 x 4.1 cm Left Kidney: 11.1 x 4.9 x 4.8 cm Right Kidney: no evidence of hydronephrosis Left Kidney: no evidence of hydronephrosis Bladder: wnl Bilateral Jets seen: yes There is no evidence for hydronephrosis at this point in time. No nephrolithiasis is seen. No zakia s are identified. The urinary bladder is anechoic. Bilateral ureteral jets are seen. IMPRESSION: No evidence of acute process, no evidence of renal calculi.
== END | disposition home or self-care (01) ==
LOC: RADUSWWP 10:55
PROVIDERS: ATTEND Urology
DX: N20.0 Calculus of kidney (principal)
CPT/HCPCS: 74018; 76770

== ENCOUNTER → 2022-02-09 | Outpatient (CLI) | payer OTHER ==
--- NOTE | 2022-02-10 19:01 | MM ---
Reason for Exam: Screening (asymptomatic). Last mammogram was performed 1 year(s) and 1 month(s) ago. Patient History: Menarche at age 11. First Full-Term at age 21. Postmenopausal. Patient used Hormonal Contraceptives for 5 years. Maternal aunt had breast cancer. Mother had breast cancer, age 50. Risk Values: Tanya 5 year model risk: 2.6%. NCI Lifetime model risk: 14.2%. Prior Study Comparison: 01/06/2016 Bilateral Screening Mammogram, [facility]. 08/29/2017 Bilateral Screening Mammogram, [facility] 10/30/2018 Bilateral Screening Mammogram, [facility] 12/24/2019 Bilateral Screening Mammogram, [facility]. 02/03/2021 Bilateral Screening Mammogram, [facility]. Tissue Density: There are scattered fibroglandular densities. Findings: Analyzed By CAD. Chronic nodularity within the left breast. No suspicious groups of microcalcifications, spiculated or lobular masses, architectural distortion or other secondary signs of malignancy are mammographically apparent. Overall Assessment: Benign, BI-RAD 2 Management: Screening Mammogram of both breasts in 1 year. A negative mammogram report should not preclude additional follow up of suspicious palpable abnormalities. Patient should continue monthly self breast exam. A clinical breast exam by your physician is recommended on an annual basis and results should be correlated with mammographic findings. Electronically signed and approved by: Chad Pineda D.O. Radiologis
== END | disposition home or self-care (01) ==
LOC: RADMAMWWP 07:21
PROVIDERS: ATTEND Family Medicine
DX: Z12.31 Encounter for screening mammogram for malignant neoplasm of breast (principal)
CPT/HCPCS: 77063; 77067

== ENCOUNTER → 2023-02-24 | Outpatient (CLI) | payer BC ==
--- NOTE | 2023-02-24 11:21 | US ---
EXAMINATION TYPE: US abdomen complete DATE OF EXAM: 02/24/2023 COMPARISON: NONE CLINICAL INDICATION: Female, 58 years old with history of R10.811 RIGHT UPPER QUADRANT ABDOMINAL TEND ERNESS; RUQ pain, heart burn, upset stomach TECHNIQUE: Multiple sonographic images of the abdomen are obtained. FINDINGS: EXAM MEASUREMENTS: Liver Length: 17.0 cm Gallbladder Wall: 0.2 cm CBD: 0.4 cm Spleen: 8.9 cm Right Kidney: 10.5x3.5x5.9 cm Left Kidney: 9.8x4.9x5.4 cm CRITICAL CARE PHYSICIAN ASSISTANT NOTES: Pancreas: Tail obscured by overlying bowel gas Liver: enlarged and echogenic Gallbladder: wnl Evidence for sonographic Cotto's sign: No CBD: wnl Spleen: wnl Right Kidney: wnl Left Kidney: wnl Upper IVC: wnl Abd Aorta: wnl exam limited by bowel gas and large body habitus. Imaging of the kidneys especially difficult. The liver is homogenous with increased echotexture and is mildly enlarged. The intrahepatic portion of the IVC and proximal abdominal aorta are within normal limits. There is no evidence of cholelithi asis. Common bile duct is unremarkable. The visualized portions of the pancreas are homogenous. Th e spleen is unremarkable. Kidneys are symmetric and free of hydronephrosis. No renal lesions are se en. IMPRESSION: 1. Hepatic steatosis. 2. No evidence for acute process. 3. Limited evaluation the kidneys due to shadowing. No evidence for obstructive uropathy.
== END | disposition home or self-care (01) ==
LOC: RADUSWWP 09:29
PROVIDERS: ATTEND Family Medicine
DX: K76.0 Fatty (change of) liver, not elsewhere classified (principal)
CPT/HCPCS: 76700

== ENCOUNTER 2023-07-20 07:30 | Day surgery (SDC) | payer BC ==
--- NOTE | 2023-07-20 07:33 | P.GSHP ---
History of Present Illness H&P Date: 07/20/23 CHIEF COMPLAINT: GERD and colon screen HISTORY OF PRESENT ILLNESS: The patient is a 58-year-old female who presents with gastroesophageal reflux disease and need for colon screen. Upper and lower endoscopy were offered for further evaluation and management. PAST MEDICAL HISTORY: Please see list. PAST SURGICAL HISTORY: Please see list. MEDICATIONS: Please see list. ALLERGIES: Please see list. SOCIAL HISTORY: No illicit drug use FAMILY HISTORY: No reports of Crohn disease or ulcerative colitis. REVIEW OF ORGAN SYSTEMS: CONSTITUTIONAL: No reports of fevers or chills. GI: Denies any blood in stools or constipation. PHYSICAL EXAM: VITAL SIGNS: Stable GENERAL: Well-developed pleasant in no acute distress. HEENT: No scleral icterus. Extraocular movements grossly intact. Moist buccal mucosa. NECK: Supple without lymphadenopathy. CHEST: Unlabored respirations. Equal bilateral excursions. CARDIOVASCULAR: Regular rate and rhythm. Distal 2+ pulses. ABDOMEN: Soft, nondistended. MUSCULOSKELETAL: No clubbing, cyanosis, or edema. ASSESSMENT: 1. Gastroesophageal reflux disease 2. Colon screen. PLAN: 1. Recommend proceeding with an upper and lower endoscopy Past Medical History Past Medical History: GERD/Reflux, Hyperlipidemia, Osteoarthritis (OA) Additional Past Medical History / Comment(s): VARICOSE VEINS., DIARRHEA., KIDNEY STONE. History of Any Multi-Drug Resistant Organisms: None Reported Past Surgical History: Joint Replacement, Orthopedic Surgery, Tubal Ligation Additional Past Surgical History / Comment(s): LEFT KNEE ARTHROSCOPY, rt knee replacement Past Anesthesia/Blood Transfusion Reactions: No Reported Reaction, Motion Sickness Additional Past Anesthesia/Blood Transfusion Reaction / Comment(s): CAR SICKNESS Smoking Status: Never smoker - Past Family History Mother Family Medical History: Cancer Additional Family Medical History / Comment(s): BREAST CANCER Father Family Medical History: Coronary Artery Disease (CAD), Diabetes Mellitus Additional Family Medical History / Comment(s): mental illness Medications and Allergies Home Medications Medication Instructions Recorded Confirmed Type Atorvastatin Calcium [Lipitor] 20 mg PO HS 11/06/15 07/19/23 History Citalopram Hydrobromide [CeleXA] 20 mg PO HS 11/06/15 07/19/23 History Cholecalciferol [Vitamin D3 (25 2,000 unit PO DAILY 01/03/19 07/19/23 History Mcg = 1000 Iu)] Loratadine 10 mg PO DAILY 04/29/20 07/19/23 History Multivit with Calcium,Iron,Min 1 each PO DAILY 04/29/20 07/19/23 History [Women's Multivitamin] Omeprazole Magnesium [PriLOSEC OTC] 20 mg PO BID 04/29/20 07/19/23 History lamoTRIgine [LaMICtal Xr] 50 mg PO HS 04/29/20 07/19/23 History Allergies Allergy/AdvReac Type Severity Reaction Status Date / Time Sulfa (Sulfonamide Allergy Anaphylaxis Verified 07/19/23 08:41 Antibiotics)
[2023-07-20] MEDS: LACTATED RINGERS 1,000 ML IV ONE (08:20)
[2023-07-20] MEDS ORDERED: LACTATED RINGERS 1,000 ML IV SCH (08:21)
[2023-07-20] MEDS ORDERED: LIDOCAINE 1% (10MG/ML) FOR IV START INTRADERMA PRN (08:21)
[2023-07-20] MEDS ORDERED: LIDOCAINE 1% INJ 10MG/ML (20 ML MDV) ONE (08:33)
[2023-07-20] MEDS ORDERED: PROPOFOL 10 MG/ML 20 ML VIAL IV ONE (08:33)
[2023-07-20 08:47] VITALS: TEMP 97.3
--- NOTE | 2023-07-20 08:48 | P.PCN ---
Date of Procedure: 07/20/23 Description of Procedure: PREOPERATIVE DIAGNOSIS: Gastrointestinal bleed Moderate obesity POSTOPERATIVE DIAGNOSIS: Gastroesophageal reflux disease. Morbid obesity. Gastritis without bleeding Diaphragmatic hiatal hernia OPERATION: Esophagogastroduodenoscopy with biopsies along the esophagus, antrum and d uodenum SURGEON: Yue Lee MD ANESTHESIA: MAC. INDICATIONS: The patient is a 58-year-old female who presents with gastrointestinal bleed. Benefits and risks of the procedure were described. Informed consent was obtained. DESCRIPTION: The patient was brought into the endoscopy suite and laid in the left lateral decubitus position. An Olympus gastroscope was passed along the posterior paolo pharynx down to the distal esophagus where the squamocolumnar junction was encountered at 39 cm from the incisors. The stomach was entered and no bile reflux was found. Additional findings are listed below. Biopsies with cold forceps were obtained of the antrum. The first through third portion of the duodenum was examined. Retroflexion of the scope confirmed Hill grade 2 lower esophageal valve. The squamocolumnar junction demonstrated LA grade B erosive esophagitis. The stomach was desufflated. The patient tolerated the procedure well. FINDINGS: Squamocolumnar junction 39 cm from the incisors. Diaphragmatic hiatus at 41 cm. Hiatal hernia, 2 cm Hill grade 2 lower esophageal valve. LA grade B erosive esophagitis. Biopsies obtained Biopsies obtained of the duodenum. Chronic gastritis with biopsies obtained. RECOMMENDATIONS: Upper endoscopy as needed.
--- NOTE | 2023-07-20 09:21 | P.PCN ---
Date of Procedure: 07/20/23 Description of Procedure: PREOPERATIVE DIAGNOSIS: Gastrointestinal bleed POSTOPERATIVE DIAGNOSIS: Procedure gastrointestinal bleeding Internal and external hemorrhoids, grade 3 OPERATION: Colonoscopy to the cecum, ileocecal valve and appendiceal orifice. SURGEON: Yue Lee MD. ANESTHESIA: MAC. INDICATIONS: The patient is a 58-year-old female who presents with GI bleed. Benefits and risks were described and informed consent was obtained. DESCRIPTION OF PROCEDURE: The patient had undergone SUFLAVE prep. The patient had been brought into the operating room and laid in the left lateral decubitus position. After adequate intravenous sedation, the rectum was examined with 2% lidocaine jelly. External hemorrhoids were encountered. The rectal tone was within normal limits. No lesions were palpated in the rectal vault. An Olympus colonoscope was advanced until the cecum, ileocecal valve and appendiceal orifice were clearly viewed. The prep was excellent. No scattered diverticulosis was encountered. No colonic polyps were found. No evidence of focal colitis was found. Retroflexion of the scope demonstrated grade 3 internal hemorrhoids without active bleeding or inflammation. The colon was desufflated. The patient had tolerated the procedure well. Withdrawal time was over 6 minutes. FINDINGS: Aronchick preparation quality scale 1 (1-5) Internal hemorrhoids, grade 3 External prolapsed hemorrhoids, grade 3 No arteriovenous malformations. No adenomatous polyps. No focal colitis. No diverticulosis RECOMMENDATIONS: Lower endoscopy in 5 years, 2028 Plan - Discharge Summary Discharge Rx Participant: No New Discharge Prescriptions: Continue Citalopram Hydrobromide [CeleXA] 20 mg PO HS Atorvastatin Calcium [Lipitor] 20 mg PO HS Cholecalciferol [Vitamin D3 (25 Mcg = 1000 Iu)] 2,000 unit PO DAILY lamoTRIgine [LaMICtal Xr] 50 mg PO HS Multivit with Calcium,Iron,Min [Women's Multivitamin] 1 each PO DAILY Omeprazole Magnesium [PriLOSEC OTC] 20 mg PO BID Loratadine 10 mg PO DAILY Discharge Medication List Atorvastatin Calcium [Lipitor] 20 mg PO HS 11/06/15 [History] Citalopram Hydrobromide [CeleXA] 20 mg PO HS 11/06/15 [History] Cholecalciferol [Vitamin D3 (25 Mcg = 1000 Iu)] 2,000 unit PO DAILY 01/03/19 [History] Loratadine 10 mg PO DAILY 04/29/20 [History] Multivit with Calcium,Iron,Min [Women's Multivitamin] 1 each PO DAILY 04/29/20 [History] Omeprazole Magnesium [PriLOSEC OTC] 20 mg PO BID 04/29/20 [History] lamoTRIgine [LaMICtal Xr] 50 mg PO HS 04/29/20 [History] Follow up Appointment(s)/Referral(s): Yue Lee MD [STAFF PHYSICIAN] - 08/09/23 4:15 pm Patient Instructions/Handouts: Hiatal Hernia (GEN), Gastritis (DC), Hemorrhoids (DC), Colonoscopy (DC) Activity/Diet/Wound Care/Special Instructions: Repeat colonoscopy in 5 years, 2028 Discharge Disposition: HOME SELF-CARE
[2023-07-20 10:01] VITALS: BP 129/63; PULSE 58; RESP 18
== END 2023-07-20 10:20 | disposition home or self-care (01) ==
LOC: ORWHC2ENDO 07:30
PROVIDERS: ATTEND Surgery Plastic and Reconstructive Surgery
DX: Z12.11 Encounter for screening for malignant neoplasm of colon (principal); K29.50 Unspecified chronic gastritis without bleeding; K44.9 Diaphragmatic hernia without obstruction or gangrene; K64.2 Third degree hemorrhoids; K64.4 Residual hemorrhoidal skin tags; K21.9 Gastro-esophageal reflux disease without esophagitis; E78.5 Hyperlipidemia, unspecified; E66.01 Morbid (severe) obesity due to excess calories; M19.90 Unspecified osteoarthritis, unspecified site; Z79.899 Other long term (current) drug therapy; Z88.1 Allergy status to other antibiotic agents; Z88.2 Allergy status to sulfonamides; Z98.51 Tubal ligation status; Z68.39 Body mass index [BMI] 39.0-39.9, adult
CPT/HCPCS: 88305; 45378; 43239; J2001; J2704

== ENCOUNTER → 2023-07-29 | Outpatient (CLI) | payer BC ==
--- NOTE | 2023-07-29 11:18 | NM ---
EXAMINATION TYPE: NM hepatobiliary w CCK DATE OF EXAM: 07/29/2023 9:32 AM COMPARISON: Ultrasound 02/24/2023. CLINICAL INDICATION:Female, 58 years old with history of R10.11 Right upper quadrant pain; TECHNIQUE: The patient was given 5.1 mCi of Technetium 99m-Mebrofenin as a radiotracer and multiple scintigraphic images were obtained of the abdomen. Gallbladder function was also assessed after the a dministration of 2.2 mcg of Kinevac and additional scintigraphic images were obtained of the abdomen. A region of interest was drawn over the gallbladder and a timing activity curve was generated. The g allbladder ejection fraction was calculated. Kinevac: 2.2 mcg FINDINGS: Normal uptake of radiotracer was identified within the liver with excretion into the hepatic and comm on biliary ducts. There was normal progressive washout of the liver over the course of the study. Rad iotracer uptake within the gallbladder as well. Small bowel activity was identified. Maximum calculated gallbladder ejection fraction is: 95% at 27minutes (Normal gallbladder ejection fraction is > 35%) IMPRESSION: 1. Normal hepatobiliary scan. 2. Normal ejection fraction.
== END | disposition home or self-care (01) ==
LOC: RADNMMAIN 06:54
PROVIDERS: ATTEND Surgery Plastic and Reconstructive Surgery
DX: R10.11 Right upper quadrant pain (principal)
CPT/HCPCS: 78227; A9537; J2805

== ENCOUNTER → 2023-10-20 | Outpatient (CLI) | payer BC | END | disposition home or self-care (01) | LOC: LABWHC1 10:50 | PROVIDERS: ATTEND Surgery Plastic and Reconstructive Surgery | DX: I11.9 Hypertensive heart disease without heart failure (principal) | CPT/HCPCS: 36415; 93005 ==

== ENCOUNTER 2024-02-23 06:41 | Day surgery (SDC) | payer BC ==
[2024-02-17 12:40] VITALS: BMI 40.3
--- NOTE | 2024-02-23 06:39 | P.GSHP ---
History of Present Illness H&P Date: 02/23/24 CHIEF COMPLAINT: Cholecystitis HISTORY OF PRESENT ILLNESS: The patient is a 59-year-old female who presents with history of epigastric including right upper quadrant abdominal pain. She underwent diagnostic studies for her gallbladder. Separately her clinical picture was consistent with cholecystitis. Now she presents for surgical intervention. PAST MEDICAL HISTORY: Please see list PAST SURGICAL HISTORY: Please see list MEDICATIONS: Please see list ALLERGIES: Please see list SOCIAL HISTORY: Please see list FAMILY HISTORY: Please see list REVIEW OF ORGAN SYSTEMS: CONSTITUTIONAL: No reports of fevers or chills. HEENT: Denies any troubles with the vision or hearing. ENDOCRINE: No reports of hypothyroidism. No diabetes. RESPIRATORY: No recent pneumonias. CARDIOVASCULAR: Denies chest pain or palpitations GI: No blood in stools or constipation. MUSCULOSKELETAL: Has occasional joint pain including back pain. NEURO: No seizure disorders or headaches. No recent stroke. PSYCH: No depression or suicidal ideation. GENITOURINARY: No active blood in urine. No urinary hesitancy. HEMATOLOGIC: No personal or family history of DVTs or pulmonary emboli. SKIN: No skin cancer. PHYSICAL EXAM: VITAL SIGNS: Afebrile vital signs stable GENERAL: Well-developed pleasant in no acute distress. HEENT: No scleral icterus. Extraocular movements grossly intact. Moist buccal mucosa. NECK: Supple without lymphadenopathy. CHEST: Unlabored respirations. Equal bilateral excursions. CARDIOVASCULAR: Regular rate regular rhythm rhythm. Distal 2+ pulses. ABDOMEN: Soft, nondistended. Tender along the epigastrium and right upper quadrant. MUSCULOSKELETAL: No clubbing, cyanosis, or edema. NEURO: Cranial nerves II to XII within normal limits. No focal or lateralizing signs. PSYCH: Alert and oriented to person, place and time. SKIN: Well-perfused good skin turgor. LABS: Reviewed. 2021 labs CBC and CMP EKG: October 2023. Normal sinus rhythm ASSESSMENT: 1. Epigastric and right upper quadrant abdominal pain 2. Chronic cholecystitis 3. Symptomatic gallstones. 4. Morbid obesity due to excess calories, BMI 40.3 PLAN: 1. Will need a robotic cholecystectomy possible open. Benefits and risks were described. 2. Heparin for DVT prophylaxis 5000 units. 3. Antibiotic prophylaxis. 4. CBC and CMP on day of procedure 5. Non-narcotic pre and post op pain management reviewed. 6. Indocyanine green for biliary imaging. 7. She is elevated risk for complications due to her co-morbidities Past Medical History Past Medical History: GERD/Reflux, Hyperlipidemia, Osteoarthritis (OA) Additional Past Medical History / Comment(s): VARICOSE VEINS, DIARRHEA, KIDNEY STONE,gallbladder issues History of Any Multi-Drug Resistant Organisms: None Reported Past Surgical History: Joint Replacement, Orthopedic Surgery, Tubal Ligation Additional Past Surgical History / Comment(s): LEFT KNEE ARTHROSCOPY, rt knee replacement, kidney stone removal 2022 Past Anesthesia/Blood Transfusion Reactions: No Reported Reaction Additional Past Anesthesia/Blood Transfusion Reaction / Comment(s): CAR SICKNESS Smoking Status: Never smoker - Past Family History Mother Family Medical History: Cancer Additional Family Medical History / Comment(s): BREAST CANCER Father Family Medical History: Coronary Artery Disease (CAD), Diabetes Mellitus Additional Family Medical History / Comment(s): mental illness Medications and Allergies Home Medications Medication Instructions Recorded Confirmed Type Atorvastatin Calcium [Lipitor] 20 mg PO HS 11/06/15 02/17/24 History Citalopram Hydrobromide [CeleXA] 20 mg PO HS 11/06/15 02/17/24 History Cholecalciferol [Vitamin D3 (25 2,000 unit PO DAILY 01/03/19 02/17/24 History Mcg = 1000 Iu)] Loratadine 10 mg PO DAILY 04/29/20 02/17/24 History Multivit with Calcium,Iron,Min 1 each PO DAILY 04/29/20 02/17/24 History [Women's Multivitamin] Omeprazole Magnesium [PriLOSEC OTC] 20 mg PO BID 04/29/20 02/17/24 History lamoTRIgine [LaMICtal Xr] 75 mg PO HS 04/29/20 02/17/24 History Allergies Allergy/AdvReac Type Severity Reaction Status Date / Time Sulfa (Sulfonamide Allergy Anaphylaxis Verified 02/17/24 12:33 Antibiotics)
[~2024-02-23 06:41] MED LIST changes: -DEXAMETHASONE SOD PHOSPHATE 10 MG/ML 1 ML VIAL IV ONE; +INDOCYANINE GREEN 25 MG VIAL IV STA; -LIDOCAINE 1% 20 ML VIAL (10MG/ML) FOR IV START INTRADERMA PRN; -MIDAZOLAM 2 MG/2 ML VIAL IV PRN; +ONDANSETRON 4 MG/2 ML VIAL IVP PRN; -SCOPOLAMINE 1.5MG/72HR PATCH TRANSDERM ONE
[2024-02-23] MEDS ORDERED: HYDROmorphone 0.5 MG/0.5 ML SYRINGE IVP PRN (07:00)
[2024-02-23] MEDS: IV FLUID CONTINUATION 1,000 ML IV ONE ×5 (07:14→09:11)
[2024-02-23] MEDS: LACTATED RINGERS 1,000 ML IV SCH (07:30)
[2024-02-23] MEDS: ONDANSETRON 4 MG/2 ML VIAL IVP ONE (07:31)
[2024-02-23] MEDS: HEPARIN SODIUM,PORCINE 5,000 UNIT/ML 1 ML VIAL SQ PRN (07:31)
[2024-02-23] MEDS: ACETAMINOPHEN TAB 500 MG TAB PO PRN (07:31)
[2024-02-23] MEDS: DEXAMETHASONE SOD PHOSPHATE 4 MG/ML 1 ML VIAL IV ONE (07:31)
[2024-02-23 07:32] LABS: Basophils % (A) 1 %; Eosinophils # (A) 0.2 k/uL (0-0.7); Eosinophils % (A) 3 %; HCT 43.8 % (34.0-46.0); HGB 13.7 gm/dL (11.4-16.0); Lymphocytes # (A) 1.4 k/uL (1.0-4.8); Lymphocytes % (A) 25 %; MCH 27.9 pg (25.0-35.0); MCHC 31.2 g/dL (31.0-37.0); MCV 89.4 fL (80.0-100.0); Mean Platelet Volume 6.6; Monocytes # (A) 0.3 k/uL (0-1.0); Monocytes % (A) 6 %; Neutrophils # (A) 3.7 k/uL (1.3-7.7); Neutrophils % (A) 64 %; Platelet Count 232 k/uL (150-450); RDW 13.3 % (11.5-15.5); WBC 5.7 k/uL (3.8-10.6)
[2024-02-23] MEDS: SCOPOLAMINE 1 MG/72 HR PATCH TRANSDERM STA (07:33)
[2024-02-23 07:47] LABS: ALT 24 U/L (4-34); AST 28 U/L (14-36); African American GFR (CKD) >90 (>60 ml/min/1.73 sqM); Albumin 4.3 g/dL (3.5-5.0); Alkaline Phosphatase 110 U/L (38-126); Anion Gap 8 mmol/L; Blood Urea Nitrogen 17 mg/dL (7-17); Calcium 9.7 mg/dL (8.4-10.2); Carbon Dioxide 27 mmol/L (22-30); Chloride 108 mmol/L (98-107); Glucose 120 mg/dL (74-99); Non-African American GFR(CKD) 83 (>60 ml/min/1.73 sqM); Potassium 4.2 mmol/L (3.5-5.1); Sodium 143 mmol/L (137-145); Total Bilirubin 0.4 mg/dL (0.2-1.3)
[2024-02-23] MEDS ORDERED: LIDOCAINE 1% INJ 10MG/ML (20 ML MDV) ONE (08:15)
[2024-02-23] MEDS ORDERED: PROPOFOL 10 MG/ML 20 ML VIAL IV ONE (08:15)
[2024-02-23] MEDS ORDERED: fentaNYL (PF) 50 MCG/ML 2 ML AMP ONE (08:15)
[2024-02-23] MEDS ORDERED: MIDAZOLAM 2 MG/2 ML VIAL ONE (08:15)
[2024-02-23] MEDS ORDERED: SUCCINYLCHOLINE CHLORIDE 200 MG/10 ML VIAL IV ONE (08:15)
[2024-02-23] MEDS ORDERED: ROCURONIUM 10 MG/ML (5 ML VIAL) IV ONE (08:15)
[2024-02-23] MEDS ORDERED: NEOSTIGMINE 1 MG/ML 10 ML VIAL ONE (08:15)
[2024-02-23] MEDS ORDERED: PHENYLEPHRINE 10 MG/ML VIAL ONE (08:15)
[2024-02-23] MEDS ORDERED: GLYCOPYRROLATE 0.2 MG/ML 2 ML VIAL ONE (08:15)
[2024-02-23] MEDS ORDERED: HYDROmorphone (PF) 1 MG/ML ONE (08:15)
[2024-02-23] MEDS ORDERED: SUGAMMADEX SODIUM 200 MG/2 ML SDV IV ONE (08:15)
[2024-02-23] MEDS: LIDOCAINE 1%-EPI 1:100,000 20 ML VIAL SQ ONE (08:43)
[2024-02-23 09:41] VITALS: TEMP 97.2
--- NOTE | 2024-02-23 09:52 | P.OP ---
Date of Procedure: 02/23/24 Description of Procedure: SURGEON: YUE LEE MD PREOPERATIVE DIAGNOSES: 1. Chronic cholecystitis with right upper quadrant abdominal pain 2. Morbid obesity to excess calories, BMI 41.5 3. Gastroesophageal reflux disease 4. Depressive disorder 5. Hyperlipidemia 6. Bipolar disorder 7. Generalized anxiety disorder 8. Hyperlipidemia 9. Osteoarthritis POSTOPERATIVE DIAGNOSES: 1. Chronic cholecystitis with right upper quadrant abdominal pain 2. Morbid obesity to excess calories, BMI 41.5 3. Gastroesophageal reflux disease 4. Depressive disorder 5. Hyperlipidemia 6. Bipolar disorder 7. Generalized anxiety disorder 8. Hyperlipidemia 9. Osteoarthritis 10. Peritoneal adhesions, right upper quadrant 11. Fatty liver disease with hepatomegaly OPERATION: 1. Robotic-assisted da Deedee Xi laparoscopic lysis of adhesions 2. Robotic-assisted da Deedee Xi laparoscopic cholecystectomy, multiport with FIREFLY ESTIMATED BLOOD LOSS: 5 mL. SPECIMENS REMOVED: Gallbladder. COMPLICATIONS: None. OPERATIVE FINDINGS: 1. Moderate scarring over entire gallbladder with peritoneal adhesions, pericholecystic with features of chronic cholecystitis 2. Hepatomegaly with fatty liver disease INDICATIONS: The patient is a 59-year-old female who presents with symptomatic gallstones. Robotic assisted laparoscopic approach was described. Benefits and risks of the procedure including but not limited to bleeding, infection, injury to the biliary tree was described. Informed consent was obtained. DESCRIPTION OF PROCEDURE: Patient was brought to the operating room, placed in supine position. After general induction, the abdomen had been prepped and draped in standard sterile fashion. The robotic da Deedee XI system was primed. After a timeout protocol was performed, the patient had been prepped and draped in standard sterile fashion. The patient was injected with indocyanine green. A 5 mm 0 degrees laparoscopic trocar entry was performed along the left upper quadrant. The abdomen insufflated to 15 mmHg pressure which was tolerated well. Diagnostic laparoscopy demonstrated no injury to bowel viscera or mesentery. The liver surface demonstrated fatty liver disease with hepatomegaly. Next, two 8 mm robotic ports were placed along the right upper abdomen. The camera 8-mm port was maintained along the epigastrium. Another 8 mm port was placed along the left upper abdominal wall after exchanging the 5 mm port. Please note that the ports were placed at least 10 to 15 cm away from the target anatomy of the gallbladder. The robot was docked along the left lateral abdomen. The patient was repositioned in reverse Trendelenburg position. Using a grasper for arm 3, a grasper for arm 4, including hook cautery for arm 1, the robotic system was docked and primed as described. Instruments were interchanged by the public relations assistant including hook cautery, Bovie cautery and clip appliers. I had sat at the console. The gallbladder was scarred with peritoneal adhesions. Lysis of adhesions was performed to free the gallbladder from the surrounding tissues. Next attention was brought to the infundibulum and cystic structures. The infundibulum and cystic duct were dissected free from surrounding tissues. The cystic duct was isolated. FIREFLY was used to identify the cystic artery and cystic structures. A critical view of safety was obtained. Large PLASTIC clips were used throughout the entire case. Using a clip grants officer, 3 clips were placed at the junction of the infundibulum and cystic duct. The cystic duct was divided between clips. Next, the cystic artery was cauterized. Electro-Bovie cautery was used to remove the gallbladder from the hepatic fossa. Hemostasis was checked and found to be adequate. The robot was undocked. I re-scrubbed into the case. Using a 10 mm Endo Catch bag via the left upper quadrant incision, the specimen was removed from the abdominal cavity. All pneumoperitoneum instruments were evacuated from the abdominal cavity. The incisions were reapproximated using 4-0 Monocryl in an interrupted subcuticular fashion. Fascial defects were less than 8 mm in size. Please note along the trocar sites, local anesthetic was placed as a field block prior to insertion of all instruments. Liquid glue was applied to the skin. At the end of the procedure needle, sponge, and instrument count had been verified correct by the surgical territory manager. The patient was transferred to postanesthesia care unit in stable condition. Intraoperative films were shared with the patient's family. Plan - Discharge Summary Discharge Rx Participant: No New Discharge Prescriptions: New Simethicone [Gas-X] 125 mg PO AC-TID PRN #20 capsule PRN Reason: Pain Acetaminophen Tab [Tylenol Tab] 1,000 mg PO Q6HR PRN #30 tablet PRN Reason: Pain Ibuprofen [Motrin] 600 mg PO Q8HR PRN #30 tab PRN Reason: Pain Continue Citalopram Hydrobromide [CeleXA] 20 mg PO HS Atorvastatin Calcium [Lipitor] 20 mg PO HS Cholecalciferol [Vitamin D3 (25 Mcg = 1000 Iu)] 2,000 unit PO DAILY lamoTRIgine [LaMICtal Xr] 75 mg PO HS Multivit with Calcium,Iron,Min [Women's Multivitamin] 1 each PO DAILY Omeprazole Magnesium [PriLOSEC OTC] 20 mg PO BID Loratadine 10 mg PO DAILY Discharge Medication List Atorvastatin Calcium [Lipitor] 20 mg PO HS 11/06/15 [History] Citalopram Hydrobromide [CeleXA] 20 mg PO HS 11/06/15 [History] Cholecalciferol [Vitamin D3 (25 Mcg = 1000 Iu)] 2,000 unit PO DAILY 01/03/19 [History] Loratadine 10 mg PO DAILY 04/29/20 [History] Multivit with Calcium,Iron,Min [Women's Multivitamin] 1 each PO DAILY 04/29/20 [History] Omeprazole Magnesium [PriLOSEC OTC] 20 mg PO BID 04/29/20 [History] lamoTRIgine [LaMICtal Xr] 75 mg PO HS 04/29/20 [History] Acetaminophen Tab [Tylenol Tab] 1,000 mg PO Q6HR PRN #30 tablet 02/23/24 [Rx] Ibuprofen [Motrin] 600 mg PO Q8HR PRN #30 tab 02/23/24 [Rx] Simethicone [Gas-X] 125 mg PO AC-TID PRN #20 capsule 02/23/24 [Rx] Follow up Appointment(s)/Referral(s): Yue Lee MD [STAFF PHYSICIAN] - 03/06/24 6:15 pm Patient Instructions/Handouts: Low Fat Diet (DC), Laparoscopic Cholecystectomy (DC) Activity/Diet/Wound Care/Special Instructions: No lifting over 10 pounds in 2 weeks until Mar 08September shower. No bath tub soaks for two weeks until Mar 08 NO LONG DRIVES OR AIRPLANE RIDES OVER 60 MINUTES FOR THE NEXT 2 WEEKS, Mar 08, DUE TO HIGH RISK OF PULMONARY EMBOLISM/DVTs Diet as tolerated. Use Tylenol and ibuprofen or Aleve scheduled for the next 24-48 hours for best pain relief. Use ice along incisions for today to prevent swelling. For today, avoid high fat foods for next 2 days Discharge Disposition: HOME SELF-CARE
[2024-02-23 10:35] VITALS: RESP 14
[2024-02-23 10:46] VITALS: BP 153/84; PULSE 93
== END 2024-02-23 11:09 | disposition home or self-care (01) ==
LOC: OR 06:41
PROVIDERS: ATTEND Surgery Plastic and Reconstructive Surgery
DX: K81.1 Chronic cholecystitis
CPT/HCPCS: 47563; 80053; 85025; 88304; S2900

== ENCOUNTER → 2024-03-07 | Outpatient (CLI) | payer BC ==
--- NOTE | 2024-03-08 12:35 | MM ---
Reason for Exam: Screening (asymptomatic). Last screening mammogram was performed 12 month(s) ago. Patient History: Menarche at age 11. First Full-Term at age 21. Postmenopausal. Patient used Hormonal Contraceptives for 5 years. Maternal aunt had breast cancer. Mother had breast cancer, age 50. Risk Values: Tanya 5 year model risk: 2.7%. NCI Lifetime model risk: 13.6%. Prior Study Comparison: 02/03/2021 Bilateral Screening Mammogram, [facility]. 02/09/2022 Bilateral MG 3D screening mammo w/cad, [facility]. 02/16/2023 Bilateral MG 3D screening mammo w/cad, [facility]. Tissue Density: There are scattered areas of fibroglandular density. Findings: Analyzed By CAD. There is no suspicious group of microcalcifications or new suspicious mass in either breast. Overall Assessment: Negative, BI-RAD 1 Management: Screening Mammogram of both breasts in 1 year. . Patient should continue monthly self-breast exams. A clinical breast exam by your physician is recommended on an annual basis. This exam should not preclude additional follow-up of suspicious palpable abnormalities. Note on Tanya scores and lifetime risk: 1. A Tanya score greater than 3% is considered moderate risk. If this is the case, consider specialist referral to assess eligibility for a risk reducing agent. 2. If overall lifetime risk for the development of breast cancer is 20% or higher, the patient may qualify for future screening with alternating mammogram and breast MRI. [facility], , 03/08/2024 12:32 PM. Electronically signed and approved by: Antolin Araujo M.D. Radiologist
== END | disposition home or self-care (01) ==
LOC: RADMAMWWP 09:43
PROVIDERS: ATTEND Family Medicine
DX: Z12.31 Encounter for screening mammogram for malignant neoplasm of breast (principal); R92.323 Mammographic fibroglandular density, bilateral breasts; Z78.0 Asymptomatic menopausal state; Z80.3 Family history of malignant neoplasm of breast
CPT/HCPCS: 77063; 77067

== ENCOUNTER → 2024-08-22 | Outpatient (CLI) | payer BC ==
--- NOTE | 2024-08-22 11:58 | MM ---
Reason for Exam: Clinical finding. Last screening mammogram was performed 6 month(s) ago. Indicated Problems: Pain of the right side (Global) for 3 Month(s). Nipple abnormality of the right side for 6 Month(s). Patient History: Menarche at age 11. First Full-Term at age 21. Postmenopausal. Patient used Hormonal Contraceptives for 5 years. Maternal aunt had breast cancer. Mother had breast cancer, age 50. Risk Values: Tanya 5 year model risk: 2.7%. NCI Lifetime model risk: 13.6%. Prior Study Comparison: 02/09/2022 Bilateral MG 3D screening mammo w/cad, [facility]. 02/16/2023 Bilateral MG 3D screening mammo w/cad, [facility] 03/07/2024 Bilateral MG 3D screening mammo w/cad, [facility]. Tissue Density: Right: The breasts are almost entirely fatty. Findings: Analyzed By CAD. No distinct mass or distortion. No suspicious microcalcifications. Overall Assessment: Negative, BI-RAD 1 Management: Screening Mammogram of both breasts in 6 months. . Results were given to the patient verbally at the time of exam. Patient should continue monthly self-breast exams. A clinical breast exam by your physician is recommended on an annual basis. This exam should not preclude additional follow-up of suspicious palpable abnormalities. Note on Tanya scores and lifetime risk: 1. A Tanya score greater than 3% is considered moderate risk. If this is the case, consider specialist referral to assess eligibility for a risk reducing agent. 2. If overall lifetime risk for the development of breast cancer is 20% or higher, the patient may qualify for future screening with alternating mammogram and breast MRI. [facility], , 08/22/2024 11:51 AM. Electronically signed and approved by: Jatin Denney M.D. Radiologis
== END | disposition home or self-care (01) ==
LOC: RADMAMWWP 11:25
PROVIDERS: ATTEND Obstetrics & Gynecology
DX: N64.4 Mastodynia (principal); R92.311 Mammographic fatty tissue density, right breast; Z78.0 Asymptomatic menopausal state; Z90.3 Acquired absence of stomach [part of]; Z92.0 Personal history of contraception
CPT/HCPCS: 77061; 77065